=== PATIENT | male | born 1950 | race Caucasian/White ===

== ENCOUNTER 2017-01-23 07:54 | Emergency (ER) | payer OTHER ==
[2017-01-23 08:15] VITALS: BMI 29.7
--- NOTE | 2017-01-23 08:29 | DR.GENAD ---
HPI - PCP Primary Care Physician: SHAYY - Complaint/Symptoms Chief Complaint Doctors Comments: Patient reports that he has had numbness of the upper and lower extremities for several months. Lately the numbness has increased. He has little feelings in the hand at times. He has been going to a chiropractor for alignment and with the assumption that the numbness will improve but this has not been the case. He has drooping to the eye lids that have increased. He denies any articulation problems or memory defect. Chief Complaint:: NUMBNESS - Source History Provided: Patient - Mode of Arrival Mode of Arrival: Wheelchair - Timing Onset of Chief Complaint: 01/20/17 PMH - PMH Past Medical History: Yes Past Medical History: Hypertension Past Medical History Comment: PT STATES HE THINKS HE HAD A TIA WHEN HE WAS 41 Past Surgical History: Yes Past Surgical History Comment: EYE SURGERY - Family History History of Family Medical Conditions: Yes Family Medical History: Diabetes Mellitus, Cancer, Coronary Artery Disease, Hypertension - Social History Does patient currently use any type of tobacco product: No Have you used tobacco products in the last 12 months: No Type of Tobacco Use: None Alcohol Use: None Do you use any recreational Drugs:: No Lives With: Spouse Lives Where: Home - infectious screening In the last 2 months have you had wt loss of >10#?: NO Have you had fever, night sweats or hemotysis?: No Have you traveled outside the country in the last 6 months?: No Isolation: Standard ROS - Review of Systems Eyes: No Symptoms Reported ENTM: No Symptoms Reported Respiratoy: No Symptoms Reported Cardiovascular: No Symptoms Reported Gastrointestinal/Abdominal: No Symptoms Reported Genitourinary: No Symptoms Reported Neurological: See HPI, Weakness, Problems Walking Musculoskeletal: Foot Integumentary: No Symptoms Reported Hematologic/Lymphatic: No Symptoms Reported Endocrine: No Symptoms Reported Psychiatric: No Symptoms Reported All Other Systems: Reviewed and Negative PE - Vital Signs Vitals: Temperature 97.5 F Pulse Rate [Apical] 56 Pulse Rate 61 Respiratory Rate 22 Blood Pressure [Left Arm] 149/86 Blood Pressure 131/86 O2 Sat by Pulse Oximetry 95 - General Limitations: No Limitations General Appearance: Alert - Head Head Exam: Normal Inspection, Atraumatic - Eyes Eye exam: Normal Appearance, PERRL, EOMI - ENT ENT Exam: Normal Exam External Ear Exam: Normal External Inspection TM/Canal Exam: Bilateral Normal Nose Exam: Normal Nose Exam Mouth Exam: Normal Inspection Throat Exam: Normal Inspection - Neck Neck Exam: Normal Inspection, Full ROM - Chest Chest Inspection: Normal Inspection - Respiratory Respiratory Exam: Normal Lung Sounds Bilat Respiratory Exam: Bilateral Clear to Auscultation - Cardiovascular Cardiovascular Exam: Regular Rate, Normal Rhythm - Abdominal Exam Abdominal Exam: Normal Inspection Abdominal Tenderness: negative: RUQ, RLQ, LUQ, LLQ, Epigastrium, Suprapubic, Diffuse, Mild, Moderate, Severe, Other - Extremities Extremities Exam: Normal Inspection - Back Back Exam: Normal Inspection, Full ROM - Neurologic Neurological Exam: Alert, Oriented X3, CN II-XII Intact - Psychiatric Psychiatric Exam: Normal Affect - Skin Skin Exam: Warm, Dry, Intact ROR - Labs Reviewed Result Diagrams: 01/23/17 08:02 01/23/17 08:02 Laboratory: WBC 6.4 X10^3/uL (3.6-10.0) 01/23/17 08:02 RBC 5.03 X10^6/uL (4.7-6.0) 01/23/17 08:02 Hgb 14.7 g/dL (13.5-18.0) 01/23/17 08:02 Hct 42.7 % (42.0-54.0) 01/23/17 08:02 MCV 85.0 fL (80.0-100.0) 01/23/17 08:02 MCH 29.3 pg (27.0-34.0) 01/23/17 08:02 MCHC 34.5 g/dL (33.0-35.0) 01/23/17 08:02 RDW 14.0 % (11.6-16.5) 01/23/17 08:02 Plt Count 226 X10^3/uL (150.0-450.0) 01/23/17 08:02 MPV 9.8 fL (7.4-11.0) 01/23/17 08:02 Neut % 77.6 % (42.0-75.0) H 01/23/17 08:02 Lymph % 12.5 % (21.0-51.0) L 01/23/17 08:02 [place] % 7.7 % (0.0-13.0) 01/23/17 08:02 Eos % 1.2 % (0.9-2.9) 01/23/17 08:02 Baso % 1.0 % (0.2-1.0) 01/23/17 08:02 Neut # 4.9 x10^3/uL (2.2-4.8) H 01/23/17 08:02 Lymph # 0.8 X10^3/uL (1.3-2.9) L 01/23/17 08:02 [place] # 0.5 x10^3/uL (0.3-0.8) 01/23/17 08:02 Eos # 0.1 x10^3/uL (0.0-0.2) 01/23/17 08:02 Baso # 0.1 X10^3/uL (0.0-0.1) 01/23/17 08:02 Absolute Nucleated RBC 0.1 /100WBC 01/23/17 08:02 Sodium 139 mmol/L (136-145) 01/23/17 08:02 Corrected Sodium 140 mmol/L (136-145) 01/23/17 08:02 Potassium 3.6 mmol/L (3.5-5.1) 01/23/17 08:02 Chloride 102 mmol/L (98-107) 01/23/17 08:02 Carbon Dioxide 28.8 mmol/L (21-32) 01/23/17 08:02 BUN 14 mg/dL (7-18) 01/23/17 08:02 Creatinine 1.22 mg/dL (0.70-1.30) 01/23/17 08:02 Est GFR (MDRD) Af Amer > 60 (>60) 01/23/17 08:02 Est GFR (MDRD) Non-Af > 60 (>60) 01/23/17 08:02 Glucose 134 mg/dL (65-99) H 01/23/17 08:02 Calcium 8.8 mg/dL (8.5-10.1) 01/23/17 08:02 Corrected Calcium TNP 01/23/17 08:02 Total Bilirubin 0.50 mg/dL (0.2-1.0) 01/23/17 08:02 AST 19 Units/L (15-37) 01/23/17 08:02 ALT 23 Units/L (12-78) 01/23/17 08:02 Alkaline Phosphatase 85 Units/L (46-116) 01/23/17 08:02 Total Protein 8.1 g/dL (6.4-8.2) 01/23/17 08:02 Albumin 3.6 g/dL (3.4-5.0) 01/23/17 08:02 Globulin 4.5 g/dL (2.5-4.5) 01/23/17 08:02 Albumin/Globulin Ratio 0.8 Ratio (1.1-2.1) L 01/23/17 08:02 TSH 3rd Generation 0.651 uIU/mL (0.358-3.74) 01/23/17 08:02 - XRAY XRAY Interpreted by: Radiologist (CT Brain: o acute intraparenchymal hemorrhage or mass can be identified. No extra-axial fluid collections are seen. No alteration in the attenuation of the brain parenchyma can be identified to suggest acute or subacute ischemic change. The ventricular system is symmetric and nondilated.. The extracranial structures are grossly unremarkable. CT Cervical Spine: Moderate degenerative changes. CT Lumbar Spine: Mild to moderate lumbar spine spondylosis and lower lumbar facet joint DJD with discal height loss at the L5-S1 level where there is also facet joint DJD and a vacuum disc phenomenon. There is also the suggestion of a right lateral disc protrusion at L5-S1 which is partially calcified which creates severe right sided and severe left sided foraminal narrowing/stenosis at L5-S1 with prob able neural impingement of the exiting nerve roots at this level.) - Diagnosis Discharge Problem: Ptosis of eyelid, bilateral, Spondylosis of lumbar spine, L5-S1 nerve root impingement DJD (degenerative joint disease) of cervical spine Qualifiers: Spinal osteoarthritis complication: with radiculopathy Qualified Code(s): M47.22 - Other spondylosis with radiculopathy, cervical region - Discharge Plan Condition: Stable - Follow ups/Referrals Follow ups/Referrals: Lawrence Hudson [Primary Care Provider] - 3 days - Instructions
[2017-01-23 08:50] LABS: BASOPHILS # (AUTO) 0.1 X10^3/uL (0.0-0.1); EOSINOPHILS # (AUTO) 0.1 x10^3/uL (0.0-0.2); EOSINOPHILS % (AUTO) 1.2 % (0.9-2.9); HEMATOCRIT 42.7 % (42.0-54.0); HEMOGLOBIN 14.7 g/dL (13.5-18.0); LYMPHOCYTES # (AUTO) 0.8 X10^3/uL (1.3-2.9); LYMPHOCYTES % (AUTO) 12.5 % (21.0-51.0); MEAN CORPUSCULAR HEMOGLOBIN 29.3 pg (27.0-34.0); MEAN CORPUSCULAR HGB CONC 34.5 g/dL (33.0-35.0); MEAN PLATELET VOLUME 9.8 fL (7.4-11.0); MONOCYTES # (AUTO) 0.5 x10^3/uL (0.3-0.8); MONOCYTES % (AUTO) 7.7 % (0.0-13.0); NEUTROPHILS # (AUTO) 4.9 x10^3/uL (2.2-4.8); NEUTROPHILS % (AUTO) 77.6 % (42.0-75.0); PLATELET COUNT 226 X10^3/uL (150.0-450.0); RED BLOOD COUNT 5.03 X10^6/uL (4.7-6.0); WHITE BLOOD COUNT 6.4 X10^3/uL (3.6-10.0)
[2017-01-23 08:58] VITALS: BP 149/86
[2017-01-23 09:05] LABS: ALANINE AMINOTRANSFERASE 23 Units/L (12-78); ALBUMIN 3.6 g/dL (3.4-5.0); ALKALINE PHOSPHATASE 85 Units/L (46-116); ASPARTATE AMINO TRANSFERASE 19 Units/L (15-37); BLOOD UREA NITROGEN 14 mg/dL (7-18); CALCIUM 8.8 mg/dL (8.5-10.1); CARBON DIOXIDE 28.8 mmol/L (21-32); CHLORIDE 102 mmol/L (98-107); COR NA(FOR HYPERGLY) 140 mmol/L (136-145); CREATININE 1.22 mg/dL (0.70-1.30); SODIUM 139 mmol/L (136-145); TOTAL PROTEIN 8.1 g/dL (6.4-8.2); TSH (3RD GENERATION) 0.651 uIU/mL (0.358-3.74); eGFR BLACK RACES > 60 (>60); eGFR NON BLACK RACES > 60 (>60)
--- NOTE | 2017-01-23 09:46 | CT ---
HISTORY: Hypertension, altered mental status, and possible CVA Study: CT brain without contrast Comparison: None Technique: Multiple axial images of the brain were obtained from the skull base to the vertex without administra tion of IV contrast. Findings: No acute intraparenchymal hemorrhage or mass can be identified. No extra-axial fluid collections are seen. No alteration in the attenuation of the brain parenchyma can be identified to suggest acute o r subacute ischemic change. The ventricular system is symmetric and nondilated. The extracranial str uctures are grossly unremarkable. If the patient's symptoms persist, follow-up brain MRI imaging is s uggested to exclude an acute CVA. IMPRESSION: 1. No acute intracranial process can be identified. Reported By:
--- NOTE | 2017-01-23 09:50 | CT ---
History: Low back pain and degenerative disc disease. Exam: Noncontrast CT examination of the lumbar spine. Technique: Multiple axial CT images of the L-spine were performed with sagittal and coronal reformatt ed CT images of the lumbar spine without the benefit of IV contrast. Comparison: No recent priors. Findings: There is mild to moderate lumbar spine spondylosis and lower lumbar facet joint DJD with discal heigh t loss at the L5-S1 level where there is also facet joint DJD and a vacuum disc phenomenon. There is also the suggestion of a right lateral disc protrusion at L5-S1 which is partially calcified which cr eates severe right sided and severe left-sided foraminal narrowing/stenosis at L5-S1 with probable ne ural impingement of the exiting nerve roots at this level. This abnormality can be followed up with l umbar spine MRI imaging for assurance and to evaluate the degree of neural compression, however. Ther e is no evidence for acute fracture, subluxation, or pars defect. No destructive lytic bony lesion or erosive endplate changes are observed there is mild to moderate bilateral SI joint DJD without joint erosion seen there is scattered aortic atherosclerosis. No retroperitoneal soft tissue masses or james nopathy is seen. No other lumbar spine abnormalities are identified on this lumbar spine CT examinati on. Impression: No acute fracture or compression deformity appreciated. No subluxation seen. Mild to moderate lumbar spine spondylosis and lower lumbar facet joint DJD with discal height loss at the L5-S1 level where there is also facet joint DJD and a vacuum disc phenomenon. There is also the suggestion of a right lateral disc protrusion at L5-S1 which is partially calcified which creates sev ere right sided and severe left-sided foraminal narrowing/stenosis at L5-S1 with probable neural impi ngement of the exiting nerve roots at this level. This abnormality can be followed up with outpatient lumbar spine MRI imaging for assurance and to evaluate the degree of neural compression, however. Reported By:
--- NOTE | 2017-01-23 10:01 | CT ---
HISTORY: Hypertension, possible TIA 20 years ago. Patient has involuntary muscle movement and jerking gradually worsening over 5 days. Study: CT cervical spine without contrast Comparison: No priors Technique: Multiple axial images of the cervical spine were obtained from the skull base to the thora cic inlet without administration of IV contrast. Sagittal and coronal reformats were performed and r eviewed. Dose reduction techniques utilized automatic exposure control. Findings: Alignment of the cervical spine is maintained. No evidence for acute cortical disruption or subluxat ion can be seen. The central canal remains free of compromise from bony fragments or significant sof t tissue encroachment. The posterior elements appear unremarkable. The prevertebral soft tissues ar e normal in their appearance. In addition, the surrounding paraspinous soft tissues are unremarkable .Moderate degenerative changes of the cervical spine are incidentally noted. IMPRESSION: 1. No evidence for traumatic injury of the cervical spine. Reported By:
== END 2017-01-23 10:53 | disposition home or self-care (01) ==
LOC: ER 08:08
DX: H02.409 Unspecified ptosis of unspecified eyelid (principal); M47.9 Spondylosis, unspecified; G55 Nerve root and plexus compressions in diseases classified elsewhere; M47.22 Other spondylosis with radiculopathy, cervical region
CPT/HCPCS: 36415; 70450; 72125; 72131; 80053; 84443; 85025; 93005; 93010; 99283

== ENCOUNTER 2017-01-23 18:49 | Inpatient (IN) | payer OTHER ==
[2017-01-23 20:36] LABS: BASOPHILS # (AUTO) 0.2 X10^3/uL (0.0-0.1); BASOPHILS % (AUTO) 2.2 % (0.2-1.0); EOSINOPHILS # (AUTO) 0.1 x10^3/uL (0.0-0.2); EOSINOPHILS % (AUTO) 1.4 % (0.9-2.9); HEMATOCRIT 41.3 % (42.0-54.0); HEMOGLOBIN 14.2 g/dL (13.5-18.0); LYMPHOCYTES # (AUTO) 1.1 X10^3/uL (1.3-2.9); LYMPHOCYTES % (AUTO) 13.5 % (21.0-51.0); MEAN CORPUSCULAR HEMOGLOBIN 29.2 pg (27.0-34.0); MEAN CORPUSCULAR HGB CONC 34.3 g/dL (33.0-35.0); MEAN PLATELET VOLUME 9.6 fL (7.4-11.0); MONOCYTES # (AUTO) 0.7 x10^3/uL (0.3-0.8); MONOCYTES % (AUTO) 9.2 % (0.0-13.0); NEUTROPHILS # (AUTO) 5.9 x10^3/uL (2.2-4.8); NEUTROPHILS % (AUTO) 73.7 % (42.0-75.0); PLATELET COUNT 236 X10^3/uL (150.0-450.0); RED BLOOD COUNT 4.86 X10^6/uL (4.7-6.0); RED CELL DISTRIBUTION WIDTH 13.8 % (11.6-16.5)
[2017-01-23 20:49] LABS: ALANINE AMINOTRANSFERASE 20 Units/L (12-78); ALBUMIN 3.5 g/dL (3.4-5.0); ALKALINE PHOSPHATASE 83 Units/L (46-116); ASPARTATE AMINO TRANSFERASE 16 Units/L (15-37); BLOOD UREA NITROGEN 16 mg/dL (7-18); CALCIUM 8.9 mg/dL (8.5-10.1); CARBON DIOXIDE 29.4 mmol/L (21-32); CHLORIDE 103 mmol/L (98-107); CREATININE 1.36 mg/dL (0.70-1.30); SODIUM 141 mmol/L (136-145); TOTAL PROTEIN 7.7 g/dL (6.4-8.2); eGFR BLACK RACES > 60 (>60); eGFR NON BLACK RACES 56 (>60)
[2017-01-23] MEDS: NS 1000 ML 1,000 ML IV SCH (20:57)
[2017-01-23] MEDS ORDERED: MAGNESIUM SULFATE 1 GM/100 mL PREMIX 1 GM/100 ML BAG IV PRN (21:28)
[2017-01-23] MEDS ORDERED: K-LYTE EFFERVESCENT PO PRN (21:28)
[2017-01-23] MEDS ORDERED: MAG-OX TAB PO PRN (21:28)
[2017-01-23 21:44] LABS: ERYTHROCYTE SEDIMENTATION RATE 5 MM/HOUR (0-15)
[2017-01-23] MEDS: K-RIDER 10 MEQ/NS 100 ML 10 MEQ/100 ML BAG IV PRN ×2 (22:00→23:07)
[2017-01-23 22:52] VITALS: BMI 30.9
[2017-01-24] MEDS: K-RIDER 10 MEQ/NS 100 ML 10 MEQ/100 ML BAG IV PRN ×3 (00:18→10:43)
[2017-01-24 06:15] LABS: BASOPHILS # (AUTO) 0.1 X10^3/uL (0.0-0.1); BASOPHILS % (AUTO) 0.8 % (0.2-1.0); EOSINOPHILS # (AUTO) 0.1 x10^3/uL (0.0-0.2); EOSINOPHILS % (AUTO) 0.8 % (0.9-2.9); HEMATOCRIT 41.9 % (42.0-54.0); HEMOGLOBIN 14.6 g/dL (13.5-18.0); LYMPHOCYTES # (AUTO) 0.7 X10^3/uL (1.3-2.9); LYMPHOCYTES % (AUTO) 7.1 % (21.0-51.0); MEAN CORPUSCULAR HEMOGLOBIN 29.6 pg (27.0-34.0); MEAN CORPUSCULAR HGB CONC 34.9 g/dL (33.0-35.0); MEAN CORPUSCULAR VOLUME 84.9 fL (80.0-100.0); MEAN PLATELET VOLUME 10.2 fL (7.4-11.0); MONOCYTES # (AUTO) 0.6 x10^3/uL (0.3-0.8); MONOCYTES % (AUTO) 6.4 % (0.0-13.0); NEUTROPHILS # (AUTO) 8.2 x10^3/uL (2.2-4.8); NEUTROPHILS % (AUTO) 84.9 % (42.0-75.0); PLATELET COUNT 219 X10^3/uL (150.0-450.0); RED BLOOD COUNT 4.94 X10^6/uL (4.7-6.0); WHITE BLOOD COUNT 9.7 X10^3/uL (3.6-10.0)
[2017-01-24 06:26] LABS: ALANINE AMINOTRANSFERASE 21 Units/L (12-78); ALBUMIN 3.5 g/dL (3.4-5.0); ALKALINE PHOSPHATASE 84 Units/L (46-116); ASPARTATE AMINO TRANSFERASE 23 Units/L (15-37); BLOOD UREA NITROGEN 12 mg/dL (7-18); CALCIUM 8.7 mg/dL (8.5-10.1); CARBON DIOXIDE 25.6 mmol/L (21-32); CHLORIDE 104 mmol/L (98-107); CREATININE 1.04 mg/dL (0.70-1.30); SODIUM 139 mmol/L (136-145); TOTAL PROTEIN 7.9 g/dL (6.4-8.2); eGFR BLACK RACES > 60 (>60); eGFR NON BLACK RACES > 60 (>60)
[2017-01-24 07:09] LABS: ERYTHROCYTE SEDIMENTATION RATE 5 MM/HOUR (0-15)
[2017-01-24] MEDS: NS 1000 ML 1,000 ML IV SCH ×2 (08:30→20:59)
[2017-01-24 10:00] LABS: FREE T4 (FREE THYROXINE) 1.22 ng/dL (0.76-1.46); TSH (3RD GENERATION) 0.643 uIU/mL (0.358-3.74)
[2017-01-24] MEDS ORDERED: PHARMACY CONSULT - DOSE _____ XX SCH (10:00)
[2017-01-24] MEDS: SOLU-Medrol 125 MG VIAL IVP SCH ×3 (10:06→20:59)
[2017-01-24] MEDS ORDERED: PATIENT'S HOME MEDICATION (Losartan/Hydrochlorothiazide [Losartan-Hctz 100-25 Mg Tab] 1 TA PO SCH (10:15)
[2017-01-24] MEDS: MESTINON 60MG TAB PO SCH ×3 (10:40→20:59)
[2017-01-24] MEDS: NORVASC TAB 10 MG PO SCH (10:40)
[2017-01-24] MEDS: TYLENOL 325 MG TAB PO PRN (10:40)
[2017-01-24] MEDS: HYZAAR 50/12.5 MG PO SCH (10:40)
--- NOTE | 2017-01-24 11:56 | MRI ---
STUDY: MRI OF THE BRAIN WITHOUT AND WITH GADOLINIUM HISTORY: Acute diplopia. Uncontrollable involuntary severe jerking of limbs with numbness and tingli ng throughout the entire body. Technique: Multiplanar multi-sequence MRI of the brain was obtained utilizing standard departmental p rotocol. Sagittal and axial T1, axial T2, FLAIR, diffusion (DWI/ADC) images through the brain were pe rformed. 20 cc of Omniscan was administered intravenously without reported complication following acquisition of informed written consent. Post gadolinium axial and coronal T1 weighted images were also performed and reviewed. Comparison: Head CT from January 23, 2017. Findings: Pre gadolinium brain: The sulci, cisterns and ventricles are prominent consistent with mild diffuse v olume loss. There are confluent and scattered foci of T2 prolongation in the periventricular and subc ortical white matter of both hemispheres. This is a nonspecific finding which likely represents micro angiopathic change in a patient of this age. There is a punctate focus of decreased diffusion versus T2 shine through in the right post central gy heaven near the vertex. There is no evidence of acute hemorrhage, mass, mass effect, or midline shift. T here are no abnormal intra-axial or extra-axial fluid collections. The major intracranial vascular flow voids appear intact. The vertebral arteries are codominant. Post gadolinium brain: Following the uneventful administration of intravenous gadolinium, there is no evidence of abnormal parenchymal or leptomeningeal enhancement. IMPRESSION: 1. Punctate focus of decreased diffusion versus T2 shine through in the superior medial aspect of th e post central gyrus on the right. This may represent an evolving acute to subacute infarct. Clinical correlation for infarct timing is recommended. 2. Nonspecific white matter change and volume loss. Reported By:
[2017-01-24] MEDS: ZyrTEC TAB 10 MG PO SCH (20:59)
[2017-01-25] MEDS: SOLU-Medrol 125 MG VIAL IVP SCH ×4 (05:23→23:29)
[2017-01-25] MEDS: MESTINON 60MG TAB PO SCH ×5 (05:23→23:29)
[2017-01-25 06:19] LABS: ALANINE AMINOTRANSFERASE 26 Units/L (12-78); ALBUMIN 3.4 g/dL (3.4-5.0); ALKALINE PHOSPHATASE 79 Units/L (46-116); ASPARTATE AMINO TRANSFERASE 54 Units/L (15-37); BLOOD UREA NITROGEN 18 mg/dL (7-18); CALCIUM 9.3 mg/dL (8.5-10.1); CARBON DIOXIDE 22.1 mmol/L (21-32); CHLORIDE 105 mmol/L (98-107); COR NA(FOR HYPERGLY) 142 mmol/L (136-145); SODIUM 140 mmol/L (136-145); TOTAL PROTEIN 7.9 g/dL (6.4-8.2); eGFR BLACK RACES > 60 (>60); eGFR NON BLACK RACES > 60 (>60)
[2017-01-25 07:44] LABS: BASOPHILS # (AUTO) 0.1 X10^3/uL (0.0-0.1); BASOPHILS % (AUTO) 0.7 % (0.2-1.0); HEMATOCRIT 42.7 % (42.0-54.0); HEMOGLOBIN 14.6 g/dL (13.5-18.0); LYMPHOCYTES # (AUTO) 0.4 X10^3/uL (1.3-2.9); LYMPHOCYTES % (AUTO) 2.3 % (21.0-51.0); MEAN CORPUSCULAR HGB CONC 34.1 g/dL (33.0-35.0); MEAN PLATELET VOLUME 10.1 fL (7.4-11.0); MONOCYTES # (AUTO) 0.4 x10^3/uL (0.3-0.8); MONOCYTES % (AUTO) 2.3 % (0.0-13.0); NEUTROPHILS # (AUTO) 16.5 x10^3/uL (2.2-4.8); NEUTROPHILS % (AUTO) 94.7 % (42.0-75.0); PLATELET COUNT 242 X10^3/uL (150.0-450.0); RED BLOOD COUNT 5.02 X10^6/uL (4.7-6.0); RED CELL DISTRIBUTION WIDTH 14.1 % (11.6-16.5); WHITE BLOOD COUNT 17.4 X10^3/uL (3.6-10.0)
[2017-01-25 07:45] LABS: BAND NEUTROPHILS % 2 % (0-10); PLATELET MORPHOLOGY COMMENT NORMAL (NORMAL)
[2017-01-25] MEDS: HYZAAR 50/12.5 MG PO SCH (09:31)
[2017-01-25] MEDS: NORVASC TAB 10 MG PO SCH (09:32)
--- NOTE | 2017-01-25 12:12 | DR.H&P ---
H&P - History & Physical for Day of: H&P Date: 01/23/17 - Chief Complaint Chief Complaint: acute diplopia, weakness - Allergies Allergies/Adverse Reactions: Allergies Allergy/AdvReac Type Severity Reaction Status Date / Time No Known Drug Allergies Allergy Verified 01/23/17 08:33 - History of Present Illness History of Present Illness: is a 66 year old patient of ours who is a direct admission from our office. He presented with complaints of double vision , unsteady balance, drooping of the eyelids and inability to keep them open, tingling of the upper and lower extremities with associated weakness, inability to hold head erect, and shortness of breath. On examination, bilateral lungs are noted with course rhonchi. Subcostal retractions noted. Abdomen is round, soft, and non-tender with normal bowel sounds in all quadrants. Patient is noted with moderate weakness to bilateral upper and lower extremities. Patient was noted with 2/5 power when head/neck flexion and extension was examined. Patient reports diplopia at rest. Ptosis is noted at rest and continues after sustained upgaze and repeated blinking. Patient reports being seen in the ER earlier this morning. A brain CT was obtained in the ER and reported no acute intracranial process. A CT of the cervical spine reported no evidence for traumatic injury of the cervical spine. A Lumbar spine CT revealed mild to moderate lumbar spine spnodylosis and lower lumbar facet joint DJD with discal height loss at the L5-S1 level where there is also facet joint DJD and vacuum disc phenomenon. There is also the suggestion of a right lateral disc protrusion at L5-S1 which is partially calcified which creates severe right sided and left sided foraminal narrowing/stenosis at L5-S1 with probable neural impingement of the exiting nerve roots at this level. We admitted patient to the hospital for acute diplopia. We will obtain a CBC, CMP, ESR, AND CRP on admission and repeat in the morning. We plan to obtain a brain MRI with contrast in the morning. - Past Medical History Past Medical History: Hypertension - Past Surgical History Surgical History: No History - Family History Family Medical History: Diabetes Mellitus, Cancer, Coronary Artery Disease, Hypertension - Social History Does patient currently use any type of tobacco product: No Have you used tobacco products in the last 12 months: No Type of Tobacco Use: None Alcohol Use: None Drug Use: None - Review of Systems Constitutional: No Symptoms Reported, Weakness. denies: Fever, Chills, Sweats, Malaise, Other Eyes: See HPI, Vision Change, Other (ptosis bilateral eyelids ) ENT: Nose Discharge, Nose Congestion. denies: Ear Pain, Ear Discharge, Nose Pain, Mouth Pain, Mouth Swelling, Throat Pain, Throat Swelling Respiratory: See HPI, Shortness of Breath, SOB with Excertion. denies: Hemoptysis, Sputum, Wheezing Cardiovascular: No Symptoms Reported. denies: Chest Pain, Palpitations, Orthopnea, Paroxysmal Noc. Dyspnea, Edema, Light Headedness, Other Gastrointestinal: No Symptoms Reported. denies: Nausea, Vomiting, Abdominal Pain, Diarrhea, Constipation, Melena, Hematochezia, Other Genitourinary: No Symptoms Reported. denies: Dysuria, Frequency, Incontinence, Hematuria, Retention, Other Musculoskeletal: Other (bilateral upper and lower extremity weakness, unstable gait ) Skin: No Symptoms Reported. denies: Rash, Lesions, Jaundice, Bruising, Wound, Ecchymosis, Other Neurological: See HPI, Weakness, Numbness, Incoordination - Physical Exam Vital Signs: Temperature 98.4 F Pulse Rate [Left Brachial] 79 Pulse Rate 63 Respiratory Rate 28 Blood Pressure [Left Arm] 149/78 Blood Pressure 149/86 O2 Sat by Pulse Oximetry 96 Oriented: Normal Eyes: Blurred Vision, Diplopia, Other (ptosis ) Ear: Normal. negative: Right, Left, Swelling, Ecchymosis, Hemotypanum, Abrasion , Laceration Nose: Discharge. negative: Normal, Injected, Blood, Other Throat: Normal Respiratory: Rhonchi Throughout Cardiovascular: Normal. negative: Tachycardia, Bradycardia, Irregular, S3, S4, Murmur, Edema, Other : Normal. negative: Dysuria, Hematuria, Frequency, Discharge, Testicular Pain , Bleeding, , Other Auscultation: Bowel Sounds: Normal Palpation: Normal Tenderness: Normal. negative: Rebound, Guarding, Rigidity Skin: Normal Musculoskeletal: Right, Left, Arm, Leg, Back:Lumbar, Tender, Instability Psychiatric: Normal Mood Description: Calm Affect: Normal Speech Pattern: Clear - Assessment/Plan (1) Diplopia Status: Acute Plan: BRAIN MRI WITH CONTRAST, CONTINUE TO MONITOR (2) Ptosis of eyelid, bilateral Status: Acute Plan: BRAIN MRI WITH CONTRAST, CONTINUE TO MONITOR (3) Weakness generalized Status: Acute Plan: BRAIN MRI WITH CONTRAST, CONTINUE TO MONITOR
[2017-01-25] MEDS: TYLENOL 325 MG TAB PO PRN (12:40)
[2017-01-25] MEDS: NS 1000 ML 1,000 ML IV SCH ×2 (15:31→23:34)
[2017-01-25] MEDS: ZyrTEC TAB 10 MG PO SCH (20:14)
[2017-01-26] MEDS: MESTINON 60MG TAB PO SCH ×6 (03:14→20:45)
[2017-01-26 05:41] LABS: BASOPHILS % (AUTO) 0.1 % (0.2-1.0); HEMATOCRIT 42.4 % (42.0-54.0); HEMOGLOBIN 14.2 g/dL (13.5-18.0); LYMPHOCYTES # (AUTO) 0.3 X10^3/uL (1.3-2.9); LYMPHOCYTES % (AUTO) 1.8 % (21.0-51.0); MEAN CORPUSCULAR HEMOGLOBIN 28.9 pg (27.0-34.0); MEAN CORPUSCULAR HGB CONC 33.6 g/dL (33.0-35.0); MEAN PLATELET VOLUME 10.4 fL (7.4-11.0); MONOCYTES # (AUTO) 0.6 x10^3/uL (0.3-0.8); MONOCYTES % (AUTO) 3.1 % (0.0-13.0); NEUTROPHILS # (AUTO) 17.5 x10^3/uL (2.2-4.8); PLATELET COUNT 229 X10^3/uL (150.0-450.0); RED BLOOD COUNT 4.93 X10^6/uL (4.7-6.0); RED CELL DISTRIBUTION WIDTH 14.2 % (11.6-16.5); WHITE BLOOD COUNT 18.4 X10^3/uL (3.6-10.0)
[2017-01-26 05:49] LABS: ALANINE AMINOTRANSFERASE 56 Units/L (12-78); ALBUMIN 3.3 g/dL (3.4-5.0); ALKALINE PHOSPHATASE 74 Units/L (46-116); ASPARTATE AMINO TRANSFERASE 106 Units/L (15-37); BLOOD UREA NITROGEN 25 mg/dL (7-18); CALCIUM 9.1 mg/dL (8.5-10.1); CHLORIDE 107 mmol/L (98-107); COR CA(FOR HYPOALB) 9.7 mg/dL (8.5-10.1); COR NA(FOR HYPERGLY) 145 mmol/L (136-145); CREATININE 1.21 mg/dL (0.70-1.30); SODIUM 144 mmol/L (136-145); TOTAL PROTEIN 7.6 g/dL (6.4-8.2); eGFR BLACK RACES > 60 (>60); eGFR NON BLACK RACES > 60 (>60)
[2017-01-26] MEDS: SOLU-Medrol 125 MG VIAL IVP SCH ×3 (06:12→20:43)
[2017-01-26 06:32] LABS: BAND NEUTROPHILS % 2 % (0-10); PLATELET MORPHOLOGY COMMENT NORMAL (NORMAL)
[2017-01-26] MEDS: HYZAAR 50/12.5 MG PO SCH (09:43)
[2017-01-26] MEDS: NORVASC TAB 10 MG PO SCH (09:43)
[2017-01-26] MEDS ORDERED: PHARMACY CONSULT - DOSE _____ XX SCH (10:00)
--- NOTE | 2017-01-26 10:45 | PCM.PROG ---
Progress Note - Progress Note for Day of Date: 01/24/17 - Subjective Subjective: WAS ADMITTED WITH ACUTE DIPLOPIA, UNSTEADY BALANCE, WEAKNESS, AND PTOSIS. TODAY, HE IS ALERT AND ORIENTED, LYING IN BED ON MORNING ROUNDS. PATIENT'S FAMILY IS AT BEDSIDE. PATIENT CONTINUES WITH MODERATED WEAKNESS TO UPPER AND LOWER EXTREMITIES. HE CONTINUES TO BE UNABLE TO HOLD HEAD ERECT. HE CONTINUES WITH INABILITY TO HOLD EYELIDS OPEN UNLESS HELD UP BY TAPE. PATIENT REPORTS DOUBLE VISION. LUNGS CONTINUE WITH COURSE RHONCHI. HE CONTINUES TO COMPLAIN OF SHORTNESS OF BREATH. HIS VITAL SIGNS THIS MORNING ARE 98.4-62-16- 99%-154/82. ABNORMAL LAB VALUES THIS MORNING INCLUDE THE FOLLOWING: HCT 41.9, POTASSIUM 3.4, GLUCOSE 103, CRP 5.60, A/G RATIO 0.8, VITAMIN B12 1714. WE OBTAINED A BRAIN MRI WITH CONTRAST TODAY. IT REPORTED PUNCTATE FOCUS OF DECREASED DIFFUSION VERSUS T2 SHINE THROUGH IN THE SUPERIOR MEDIAL ASPECT OF THE POST CENTRAL GYRUS ON THE RIGHT. THIS MAY REPRESENT AN EVOLVING ACUTE TO SUBACUTE INFARCT. CLINICAL CORRELATION FOR INFARCT TIMING IS RECOMMENDED. NONSPECIFIC WHITE MATTER CHANGE AND VOLUME LOSS. WE BELIEVE THAT PATIENT IS EXHIBITING SIGNS AND SYMPTOMS OF MYASTHENIA GRAVIS. TODAY, WE PLAN TO START SOLUMEDROL 125MG IV Q8H AND MESTINON 60MG TID. WE WILL CHECK A MYASTHENIA GRAVIS PANEL AND AN EMILY TITER. OTHERWISE, WE WILL CONTINUE TO MONITOR PATIENT AND FOLLOW UP WITH AM LABS. - Past Medical Family Social History Past Med/Fam/Surg Hx: No changes since H&P Allergies: Allergies No Known Drug Allergies Allergy (Verified 01/23/17 08:33) - Review of Systems ROS: No change since H&P - Vital Signs and I&O's Vital Signs: Temperature 98.2 F Pulse Rate [Left Brachial] 68 Pulse Rate 63 Respiratory Rate 22 Blood Pressure [Left Arm] 150/60 Blood Pressure 149/86 O2 Sat by Pulse Oximetry 96 Intake and Output: Intake & Output 01/23/17 01/24/17 01/25/17 01/26/17 11:59 11:59 11:59 11:59 Intake Total 1624 3812 1795 Output Total 950 120 Balance 674 3692 1795 - Physical Exam Oriented: Normal Eyes: Blurred Vision, Diplopia, Other (ptosis ) Ear: Normal. negative: Right, Left, Swelling, Ecchymosis, Hemotypanum, Abrasion , Laceration Nose: Discharge. negative: Normal, Injected, Blood, Other Throat: Normal Respiratory: Right, Left, Generalized, Rhonchi Cardiovascular: Normal. negative: Tachycardia, Bradycardia, Irregular, S3, S4, Murmur, Edema, Other : Normal. negative: Dysuria, Hematuria, Frequency, Discharge, Testicular Pain , Bleeding, , Other Auscultation: Bowel Sounds: Normal Palpation: Normal Tenderness: Normal. negative: Rebound, Guarding, Rigidity Skin: Normal Musculoskeletal: Right, Left, Arm, Leg, Back:Lumbar, Tender, Instability Psychiatric: Normal Mood Description: Calm Affect: Normal Speech Pattern: Clear, Appropriate - Laboratory and Diagnostics Result Diagrams: 01/28/17 04:00 01/28/17 04:00 Labs: Laboratory WBC 18.4 X10^3/uL (3.6-10.0) H 01/26/17 04:45 RBC 4.93 X10^6/uL (4.7-6.0) 01/26/17 04:45 Hgb 14.2 g/dL (13.5-18.0) 01/26/17 04:45 Hct 42.4 % (42.0-54.0) 01/26/17 04:45 MCV 86.0 fL (80.0-100.0) 01/26/17 04:45 MCH 28.9 pg (27.0-34.0) 01/26/17 04:45 MCHC 33.6 g/dL (33.0-35.0) 01/26/17 04:45 RDW 14.2 % (11.6-16.5) 01/26/17 04:45 Plt Count 229 X10^3/uL (150.0-450.0) 01/26/17 04:45 Plt Count Comment Adequate (ADEQUATE) 01/26/17 04:45 MPV 10.4 fL (7.4-11.0) 01/26/17 04:45 Neut % 95.0 % (42.0-75.0) H 01/26/17 04:45 Lymph % 1.8 % (21.0-51.0) L 01/26/17 04:45 [place] % 3.1 % (0.0-13.0) 01/26/17 04:45 Eos % 0.0 % (0.9-2.9) L 01/26/17 04:45 Baso % 0.1 % (0.2-1.0) L 01/26/17 04:45 Neut # 17.5 x10^3/uL (2.2-4.8) H 01/26/17 04:45 Lymph # 0.3 X10^3/uL (1.3-2.9) L 01/26/17 04:45 [place] # 0.6 x10^3/uL (0.3-0.8) 01/26/17 04:45 Eos # 0.0 x10^3/uL (0.0-0.2) 01/26/17 04:45 Baso # 0.0 X10^3/uL (0.0-0.1) 01/26/17 04:45 Absolute Nucleated RBC 0.0 /100WBC 01/26/17 04:45 Total Counted 100 01/26/17 04:45 Neutrophils % (Manual) 93 % (39-76) H 01/26/17 04:45 Band Neutrophils % 2 % (0-10) 01/26/17 04:45 Lymphocytes % (Manual) 5 % (13-43) L 01/26/17 04:45 Plt Morphology Comment Normal (NORMAL) 01/26/17 04:45 RBC Morphology Normal (NORMAL) 01/26/17 04:45 ESR 5 MM/HOUR (0-15) 01/24/17 05:23 Sodium 144 mmol/L (136-145) 01/26/17 04:45 Corrected Sodium 145 mmol/L (136-145) 01/26/17 04:45 Potassium 3.4 mmol/L (3.5-5.1) L 01/26/17 04:45 Chloride 107 mmol/L (98-107) 01/26/17 04:45 Carbon Dioxide 28.0 mmol/L (21-32) 01/26/17 04:45 BUN 25 mg/dL (7-18) H 01/26/17 04:45 Creatinine 1.21 mg/dL (0.70-1.30) 01/26/17 04:45 Est GFR (MDRD) Af Amer > 60 (>60) 01/26/17 04:45 Est GFR (MDRD) Non-Af > 60 (>60) 01/26/17 04:45 Glucose 146 mg/dL (65-99) H 01/26/17 04:45 Calcium 9.1 mg/dL (8.5-10.1) 01/26/17 04:45 Corrected Calcium 9.7 mg/dL (8.5-10.1) 01/26/17 04:45 Magnesium 1.8 mg/dL (1.7-2.9) 01/23/17 20:28 Total Bilirubin 0.30 mg/dL (0.2-1.0) 01/26/17 04:45 AST 106 Units/L (15-37) H 01/26/17 04:45 ALT 56 Units/L (12-78) 01/26/17 04:45 Alkaline Phosphatase 74 Units/L (46-116) 01/26/17 04:45 C-Reactive Protein 5.60 mg/L (0-3.0) H 01/24/17 05:23 Total Protein 7.6 g/dL (6.4-8.2) 01/26/17 04:45 Albumin 3.3 g/dL (3.4-5.0) L 01/26/17 04:45 Globulin 4.3 g/dL (2.5-4.5) 01/26/17 04:45 Albumin/Globulin Ratio 0.8 Ratio (1.1-2.1) L 01/26/17 04:45 Vitamin B12 1714 pg/mL (193-986) H 01/24/17 05:23 Free T4 1.22 ng/dL (0.76-1.46) 01/24/17 05:23 TSH 3rd Generation 0.643 uIU/mL (0.358-3.74) 01/24/17 05:23 Acetylcholine Recept Ab Cancelled 01/23/17 20:14 - Plan (1) Myasthenia gravis with (acute) exacerbation Status: Suspected Plan: SOLU-MEDROL 125MG IV Q8H, MESTINON 60MG PO TID, CONTINUE TO MONITOR (2) Diplopia Status: Acute Plan: CONTINUE TO MONITOR (3) Ptosis of eyelid, bilateral Status: Acute Plan: CONTINUE TO MONITOR (4) Weakness generalized Status: Acute Plan: PHYSICAL THERAPY, CONTINUE TO MONITOR
[2017-01-26] MEDS: NS 1000 ML 1,000 ML IV SCH ×2 (13:38→20:46)
[2017-01-26] MEDS: ZyrTEC TAB 10 MG PO SCH (20:44)
[2017-01-27] MEDS: SOLU-Medrol 125 MG VIAL IVP SCH ×4 (00:30→18:08)
[2017-01-27] MEDS: NS 1000 ML 1,000 ML IV SCH ×3 (05:36→16:18)
[2017-01-27 05:52] LABS: BASOPHILS % (AUTO) 0.1 % (0.2-1.0); HEMATOCRIT 40.9 % (42.0-54.0); LYMPHOCYTES # (AUTO) 0.3 X10^3/uL (1.3-2.9); MEAN CORPUSCULAR HEMOGLOBIN 29.1 pg (27.0-34.0); MEAN CORPUSCULAR HGB CONC 34.4 g/dL (33.0-35.0); MEAN CORPUSCULAR VOLUME 84.7 fL (80.0-100.0); MEAN PLATELET VOLUME 10.4 fL (7.4-11.0); MONOCYTES # (AUTO) 0.5 x10^3/uL (0.3-0.8); MONOCYTES % (AUTO) 3.4 % (0.0-13.0); NEUTROPHILS # (AUTO) 14.9 x10^3/uL (2.2-4.8); NEUTROPHILS % (AUTO) 94.5 % (42.0-75.0); PLATELET COUNT 253 X10^3/uL (150.0-450.0); RED BLOOD COUNT 4.82 X10^6/uL (4.7-6.0); RED CELL DISTRIBUTION WIDTH 14.2 % (11.6-16.5); WHITE BLOOD COUNT 15.7 X10^3/uL (3.6-10.0)
[2017-01-27 06:25] LABS: PLATELET MORPHOLOGY COMMENT NORMAL (NORMAL)
[2017-01-27 06:26] LABS: BAND NEUTROPHILS % 2 % (0-10)
[2017-01-27 06:34] LABS: ALANINE AMINOTRANSFERASE 76 Units/L (12-78); ALBUMIN 3.2 g/dL (3.4-5.0); ALKALINE PHOSPHATASE 72 Units/L (46-116); ASPARTATE AMINO TRANSFERASE 91 Units/L (15-37); BLOOD UREA NITROGEN 27 mg/dL (7-18); CALCIUM 8.7 mg/dL (8.5-10.1); CHLORIDE 104 mmol/L (98-107); COR CA(FOR HYPOALB) 9.3 mg/dL (8.5-10.1); COR NA(FOR HYPERGLY) 143 mmol/L (136-145); CREATININE 1.12 mg/dL (0.70-1.30); MAGNESIUM 2.3 mg/dL (1.7-2.9); SODIUM 142 mmol/L (136-145); TOTAL PROTEIN 7.1 g/dL (6.4-8.2); eGFR BLACK RACES > 60 (>60); eGFR NON BLACK RACES > 60 (>60)
[2017-01-27] MEDS: MESTINON 60MG TAB PO SCH ×4 (09:10→20:33)
[2017-01-27] MEDS: NORVASC TAB 10 MG PO SCH (09:11)
[2017-01-27] MEDS: HYZAAR 50/12.5 MG PO SCH (09:11)
[2017-01-27] MEDS: K-RIDER 10 MEQ/NS 100 ML 10 MEQ/100 ML BAG IV PRN ×6 (09:15→23:34)
[2017-01-27 11:04] LABS: ANTI-NUCLEAR ANTIBODY TEST None Detected (None Detected)
[2017-01-27] MEDS: ZyrTEC TAB 10 MG PO SCH (20:33)
[2017-01-27] MEDS ORDERED: RESTORIL CAP 15 MG PO PRN (22:08)
[2017-01-27] MEDS ORDERED: ZOFRAN INJ 4 MG VIAL IVP PRN (22:08)
[2017-01-27] MEDS: TYLENOL 325 MG TAB PO PRN (22:39)
[2017-01-28] MEDS: SOLU-Medrol 125 MG VIAL IVP SCH ×2 (00:15→06:03)
[2017-01-28] MEDS: K-RIDER 10 MEQ/NS 100 ML 10 MEQ/100 ML BAG IV PRN ×2 (00:58→06:20)
[2017-01-28 01:14] LABS: BILIRUBIN,URINE NEGATIVE (NEGATIVE); BLOOD/HEMOGLOBIN,URINE 2+ (NEGATIVE); GLUCOSE, URINE NEGATIVE (NEGATIVE); KETONES,URINE NEGATIVE (NEGATIVE); LEUKOCYTE ESTERASE ,URINE NEGATIVE (NEGATIVE); NITRITES,URINE NEGATIVE (NEGATIVE); PROTEIN,URINE NEGATIVE (NEGATIVE); UROBILINOGEN,URINE NORMAL (NORMAL)
[2017-01-28 01:20] LABS: APPEARANCE,URINE CLEAR (CLEAR); BACTERIA,URINE NEGATIVE /HPF (NEGATIVE); COLOR,URINE PALE YELLOW (YELLOW); RBC,URINE RARE /HPF (NEGATIVE); SQUAMOUS EPITHELIAL CELL,UR NEGATIVE /HPF (NEGATIVE)
[2017-01-28] MEDS: NORCO 5/325 MG TAB PO PRN ×2 (03:05→10:28)
[2017-01-28] MEDS: NS 1000 ML 1,000 ML IV SCH (03:05)
[2017-01-28 05:15] LABS: BASOPHILS % (AUTO) 0.1 % (0.2-1.0); HEMATOCRIT 39.9 % (42.0-54.0); HEMOGLOBIN 13.7 g/dL (13.5-18.0); LYMPHOCYTES # (AUTO) 0.2 X10^3/uL (1.3-2.9); LYMPHOCYTES % (AUTO) 1.7 % (21.0-51.0); MEAN CORPUSCULAR HEMOGLOBIN 29.1 pg (27.0-34.0); MEAN CORPUSCULAR HGB CONC 34.2 g/dL (33.0-35.0); MEAN CORPUSCULAR VOLUME 85.1 fL (80.0-100.0); MEAN PLATELET VOLUME 10.6 fL (7.4-11.0); MONOCYTES # (AUTO) 0.5 x10^3/uL (0.3-0.8); MONOCYTES % (AUTO) 4.5 % (0.0-13.0); NEUTROPHILS # (AUTO) 9.9 x10^3/uL (2.2-4.8); NEUTROPHILS % (AUTO) 93.7 % (42.0-75.0); PLATELET COUNT 238 X10^3/uL (150.0-450.0); RED BLOOD COUNT 4.69 X10^6/uL (4.7-6.0); RED CELL DISTRIBUTION WIDTH 14.1 % (11.6-16.5); WHITE BLOOD COUNT 10.6 X10^3/uL (3.6-10.0)
[2017-01-28 05:21] LABS: ALANINE AMINOTRANSFERASE 102 Units/L (12-78); ALBUMIN 2.9 g/dL (3.4-5.0); ALKALINE PHOSPHATASE 60 Units/L (46-116); ASPARTATE AMINO TRANSFERASE 86 Units/L (15-37); BLOOD UREA NITROGEN 23 mg/dL (7-18); CALCIUM 8.3 mg/dL (8.5-10.1); CHLORIDE 106 mmol/L (98-107); COR CA(FOR HYPOALB) 9.2 mg/dL (8.5-10.1); COR NA(FOR HYPERGLY) 144 mmol/L (136-145); CREATININE 0.92 mg/dL (0.70-1.30); SODIUM 143 mmol/L (136-145); TOTAL PROTEIN 6.5 g/dL (6.4-8.2); eGFR BLACK RACES > 60 (>60); eGFR NON BLACK RACES > 60 (>60)
[2017-01-28 05:55] LABS: PLATELET MORPHOLOGY COMMENT NORMAL (NORMAL)
--- NOTE | 2017-01-28 06:19 | RAD ---
Examination: Portable KUB History: Abdominal distention Findings: There is moderately severe gaseous distention of the colon. Gas is present in the rectosigm oid. The underlying visceral structures are largely obscured. There is no obvious mass or pathologic calcification or ascites. Impression: Significant colon distention which may represent primary colon ileus. A distal obstructio n is a possibility and should be clinically considered. Follow-up suggested. Reported By:
--- NOTE | 2017-01-28 06:20 | RAD ---
Indication: Cough Exam: Portable AP chest. Findings: The heart is normal. The pulmonary vessels are normal. The lungs are hypoinflated there is overlying EKG leads and tubing artifact. No consolidation or effusion is seen. Impression: Hypoinflation and overlying artifact limiting the exam with no acute abnormality seen. Reported By:
[2017-01-28] MEDS: HYZAAR 50/12.5 MG PO SCH (08:14)
[2017-01-28] MEDS: MESTINON 60MG TAB PO SCH (08:15)
[2017-01-28] MEDS: TYLENOL 325 MG TAB PO PRN (08:15)
[2017-01-28] MEDS: NORVASC TAB 10 MG PO SCH (08:15)
[2017-01-28] MEDS ORDERED: K-DUR TAB 20 MEQ PO SCH (09:00)
[2017-01-28] MEDS ORDERED: VITAMIN B-12 INJ IM ONE (09:56)
[2017-01-28 11:01] LABS: STRIATIONAL ANTIBODY <1:40
[2017-01-28 11:02] LABS: ACHR BINDING ANTIBODY 0.2
[2017-01-28 12:33] VITALS: BP 154/71
--- NOTE | 2017-01-28 22:08 | PCM.PROG ---
Progress Note - Progress Note for Day of Date: 01/25/17 - Subjective Subjective: WAS ADMITTED WITH ACUTE DIPLOPIA, UNSTEADY BALANCE, WEAKNESS, AND PTOSIS. TODAY, HE IS ALERT AND ORIENTED, LYING IN BED ON MORNING ROUNDS. PATIENT'S FAMILY IS AT BEDSIDE. PATIENT CONTINUES WITH WEAKNESS TO UPPER AND LOWER EXTREMITIES, HOWEVER, SIGNIFICANT IMPROVEMENT IS NOTED SINCE YESTERDAY. PATIENT IS ABLE TO HOLD HEAD ERECT AND HAS GOOD USE AND CONTROL OF NECK WHEREAS HE DIDNT YESTERDAY. HE CONTINUES WITH PTOSIS, BUT REPORTS THAT DOUBLE VISION HAS RESOLVED. LUNGS CONTINUE WITH COURSE RHONCHI BILATERALLY TO AUSCULTATION. HE CONTINUES WITH SHORTNESS OF BREATH. HIS VITAL SIGNS THIS MORNING ARE 98.4-83-44-94%-160/69. ABNORMAL LAB VALUES THIS MORNING INCLUDE THE FOLLOWING: WBC 17.4, GLUCOSE 179, AST 54, A/G RATIO 0.8. EMILY PANEL AND MYASTHENIA GRAVIS PANEL ARE PENDING. WE CONTINUE TO BELIEVE THAT PATIENT IS EXHIBITING SIGNS AND SYMPTOMS OF ACUTE MYASTHENIA GRAVIS, HOWEVER, WE ARE WAITING ON MYASTHENIA GRAVIS PANEL TO CONFIRM. TODAY, WE PLAN TO INCREASE SOLUMEDROL 125MG IV Q6H AND INCREASE MESTINON 60MG TO Q4H. OTHERWISE, WE WILL CONTINUE TO MONITOR PATIENT AND FOLLOW UP WITH AM LABS. - Past Medical Family Social History Past Med/Fam/Surg Hx: No changes since H&P Allergies: Allergies No Known Drug Allergies Allergy (Verified 01/23/17 08:33) - Review of Systems ROS: No change since H&P - Vital Signs and I&O's Vital Signs: Temperature 98.7 F Pulse Rate [Left Brachial] 67 Pulse Rate 80 Respiratory Rate 32 Blood Pressure [Left Arm] 154/71 Blood Pressure 149/86 O2 Sat by Pulse Oximetry 98 Intake and Output: Intake & Output 01/26/17 01/27/17 01/28/17 01/29/17 11:59 11:59 11:59 11:59 Intake Total 1795 4094 3540 Output Total 225 3730 Balance 1795 3869 -190 - Physical Exam Oriented: Normal Eyes: Blurred Vision, Diplopia, Other (ptosis ) Ear: Normal. negative: Right, Left, Swelling, Ecchymosis, Hemotypanum, Abrasion , Laceration Nose: Discharge. negative: Normal, Injected, Blood, Other Throat: Normal Respiratory: Right, Left, Generalized, Rhonchi Cardiovascular: Normal. negative: Tachycardia, Bradycardia, Irregular, S3, S4, Murmur, Edema, Other : Normal. negative: Dysuria, Hematuria, Frequency, Discharge, Testicular Pain , Bleeding, , Other Auscultation: Bowel Sounds: Normal Palpation: Normal Tenderness: Normal. negative: Rebound, Guarding, Rigidity Skin: Normal Musculoskeletal: Right, Left, Arm, Leg, Back:Lumbar, Tender, Instability Psychiatric: Normal Mood Description: Calm Affect: Normal Speech Pattern: Clear, Appropriate - Laboratory and Diagnostics Result Diagrams: 01/28/17 04:00 01/28/17 04:00 Labs: 01/27/17 20:39 Sputum - Expectorated Sputum Sputum Culture - Preliminary 01/27/17 20:39 Sputum - Expectorated Sputum - Final Laboratory WBC 10.6 X10^3/uL (3.6-10.0) H 01/28/17 04:00 RBC 4.69 X10^6/uL (4.7-6.0) L 01/28/17 04:00 Hgb 13.7 g/dL (13.5-18.0) 01/28/17 04:00 Hct 39.9 % (42.0-54.0) L 01/28/17 04:00 MCV 85.1 fL (80.0-100.0) 01/28/17 04:00 MCH 29.1 pg (27.0-34.0) 01/28/17 04:00 MCHC 34.2 g/dL (33.0-35.0) 01/28/17 04:00 RDW 14.1 % (11.6-16.5) 01/28/17 04:00 Plt Count 238 X10^3/uL (150.0-450.0) 01/28/17 04:00 Plt Count Comment Adequate (ADEQUATE) 01/28/17 04:00 MPV 10.6 fL (7.4-11.0) 01/28/17 04:00 Neut % 93.7 % (42.0-75.0) H 01/28/17 04:00 Lymph % 1.7 % (21.0-51.0) L 01/28/17 04:00 [place] % 4.5 % (0.0-13.0) 01/28/17 04:00 Eos % 0.0 % (0.9-2.9) L 01/28/17 04:00 Baso % 0.1 % (0.2-1.0) L 01/28/17 04:00 Neut # 9.9 x10^3/uL (2.2-4.8) H 01/28/17 04:00 Lymph # 0.2 X10^3/uL (1.3-2.9) L 01/28/17 04:00 [place] # 0.5 x10^3/uL (0.3-0.8) 01/28/17 04:00 Eos # 0.0 x10^3/uL (0.0-0.2) 01/28/17 04:00 Baso # 0.0 X10^3/uL (0.0-0.1) 01/28/17 04:00 Absolute Nucleated RBC 0.0 /100WBC 01/28/17 04:00 Total Counted 100 01/28/17 04:00 Neutrophils % (Manual) 92 % (39-76) H 01/28/17 04:00 Band Neutrophils % 2 % (0-10) 01/27/17 04:50 Lymphocytes % (Manual) 5 % (13-43) L 01/28/17 04:00 Monocytes % (Manual) 3 % (4-9) L 01/28/17 04:00 Plt Morphology Comment Normal (NORMAL) 01/28/17 04:00 RBC Morphology Normal (NORMAL) 01/28/17 04:00 ESR 5 MM/HOUR (0-15) 01/24/17 05:23 Sodium 143 mmol/L (136-145) 01/28/17 04:00 Corrected Sodium 144 mmol/L (136-145) 01/28/17 04:00 Potassium 3.2 mmol/L (3.5-5.1) L 01/28/17 04:00 Chloride 106 mmol/L (98-107) 01/28/17 04:00 Carbon Dioxide 34.0 mmol/L (21-32) H 01/28/17 04:00 BUN 23 mg/dL (7-18) H 01/28/17 04:00 Creatinine 0.92 mg/dL (0.70-1.30) 01/28/17 04:00 Est GFR (MDRD) Af Amer > 60 (>60) 01/28/17 04:00 Est GFR (MDRD) Non-Af > 60 (>60) 01/28/17 04:00 Glucose 147 mg/dL (65-99) H 01/28/17 04:00 Calcium 8.3 mg/dL (8.5-10.1) L 01/28/17 04:00 Corrected Calcium 9.2 mg/dL (8.5-10.1) 01/28/17 04:00 Magnesium 2.3 mg/dL (1.7-2.9) 01/27/17 04:50 Total Bilirubin 0.50 mg/dL (0.2-1.0) 01/28/17 04:00 AST 86 Units/L (15-37) H 01/28/17 04:00 ALT 102 Units/L (12-78) H 01/28/17 04:00 Alkaline Phosphatase 60 Units/L (46-116) 01/28/17 04:00 C-Reactive Protein 5.60 mg/L (0-3.0) H 01/24/17 05:23 Total Protein 6.5 g/dL (6.4-8.2) 01/28/17 04:00 Albumin 2.9 g/dL (3.4-5.0) L 01/28/17 04:00 Globulin 3.6 g/dL (2.5-4.5) 01/28/17 04:00 Albumin/Globulin Ratio 0.8 Ratio (1.1-2.1) L 01/28/17 04:00 Vitamin B12 1714 pg/mL (193-986) H 01/24/17 05:23 Free T4 1.22 ng/dL (0.76-1.46) 01/24/17 05:23 TSH 3rd Generation 0.643 uIU/mL (0.358-3.74) 01/24/17 05:23 Specimen Type Catherized urine 01/28/17 00:59 Urine Color Pale yellow (YELLOW) 01/28/17 00:59 Urine Appearance Clear (CLEAR) 01/28/17 00:59 Urine pH 6.0 (5.0 - 8.0) 01/28/17 00:59 Ur Specific [place] 1.020 (1.000-1.030) 01/28/17 00:59 Urine Protein Negative (NEGATIVE) 01/28/17 00:59 Urine Glucose (UA) Negative (NEGATIVE) 01/28/17 00:59 Urine Ketones Negative (NEGATIVE) 01/28/17 00:59 Urine Occult Blood 2+ (NEGATIVE) 01/28/17 00:59 Urine Nitrite Negative (NEGATIVE) 01/28/17 00:59 Urine Bilirubin Negative (NEGATIVE) 01/28/17 00:59 Urine Urobilinogen Normal (NORMAL) 01/28/17 00:59 Ur Leukocyte Esterase Negative (NEGATIVE) 01/28/17 00:59 Urine RBC Rare /HPF (NEGATIVE) 01/28/17 00:59 Urine WBC None seen /HPF (NEGATIVE) 01/28/17 00:59 Ur Squamous Epith Cells Negative /HPF (NEGATIVE) 01/28/17 00:59 Urine Bacteria Negative /HPF (NEGATIVE) 01/28/17 00:59 Ur Culture Indicated? No/not indicated 01/28/17 00:59 EMILY Screen None detected (None Detected) 01/24/17 05:23 EMILY Titer TNP 01/24/17 05:23 EMILY Pattern TNP 01/24/17 05:23 AChR Muscle Binding Ab 0.2 01/24/17 05:23 Striated Muscle IgG Ab <1:40 01/24/17 05:23 Acetylcholine Recept Ab Cancelled 01/23/17 20:14 - Plan (1) Myasthenia gravis with (acute) exacerbation Status: Suspected Plan: SOLU-MEDROL 125MG IV Q6H, MESTINON 60MG PO Q4H, CONTINUE TO MONITOR (2) Diplopia Status: Acute Plan: CONTINUE TO MONITOR (3) Ptosis of eyelid, bilateral Status: Acute Plan: CONTINUE TO MONITOR (4) Weakness generalized Status: Acute Plan: PHYSICAL THERAPY, CONTINUE TO MONITOR
--- NOTE | 2017-01-28 23:05 | PCM.PROG ---
Progress Note - Progress Note for Day of Date: 01/26/17 - Subjective Subjective: WAS ADMITTED WITH ACUTE DIPLOPIA, UNSTEADY BALANCE, WEAKNESS, AND PTOSIS. TODAY, HE IS ALERT AND ORIENTED, LYING IN BED ON MORNING ROUNDS. PATIENT'S FAMILY IS AT BEDSIDE. PATIENT CONTINUES WITH WEAKNESS TO UPPER AND LOWER EXTREMITIES, WHICH APPEAR TO HAVE WORSENED AGAIN. PATIENT DOES NOT HAVE MUCH CONTROL OVER NECK MUSCLES HE DID YESTERDAY. HE CONTINUES WITH PTOSIS, BUT CONTINUES TO DENY DOUBLE VISION TODAY. STAFF REPORTS THAT AROUND 02:50 THIS MORNING, MUSCLE TWITCHING APPEARED TO BE WORSENING AND THAT PATIENT WAS UNABLE TO WALK TO THE BATHROOM, WHEREAS HE WAS ABLE TO LAST NIGHT AND YESTERDAY. PATIENT WAS UNABLE TO STAND AND REPORTS THAT HE WOULD LIKE TO SPEAK TO US BEFORE TAKING ANYMORE MEDICATIONS. PATIENT REPORTS THAT HE FELT IF THE MEDICATION WAS MORE BENEFICIAL TO HIM BEFORE WE INCREASED THE FREQUENCY OF THE MESTINON. LUNGS CONTINUE WITH COURSE RHONCHI BILATERALLY TO AUSCULTATION. HE CONTINUES WITH SHORTNESS OF BREATH. HIS VITAL SIGNS THIS MORNING ARE 98.2-68-22-96%-150/60. ABNORMAL LAB VALUES THIS MORNING INCLUDE THE FOLLOWING: WBC 18.4, POTASSIUM 3.4, BUN 25, GLUCOSE 146, AST 106, ALBUMIN 3.3, A /G RATIO 0.8. EMILY PANEL AND MYASTHENIA GRAVIS PANEL ARE PENDING. TODAY, WE PLAN TO DECREASE THE MESTINON TO 30MG PO QID. OTHERWISE, WE WILL CONTINUE TO MONITOR PATIENT AND FOLLOW UP WITH AM LABS. - Past Medical Family Social History Past Med/Fam/Surg Hx: No changes since H&P Allergies: Allergies No Known Drug Allergies Allergy (Verified 01/23/17 08:33) - Review of Systems ROS: No change since H&P - Vital Signs and I&O's Vital Signs: Temperature 98.7 F Pulse Rate [Left Brachial] 67 Pulse Rate 80 Respiratory Rate 32 Blood Pressure [Left Arm] 154/71 Blood Pressure 149/86 O2 Sat by Pulse Oximetry 98 Intake and Output: Intake & Output 01/26/17 01/27/17 01/28/17 01/29/17 11:59 11:59 11:59 11:59 Intake Total 1795 4094 3540 Output Total 225 3730 Balance 1795 3869 -190 - Physical Exam Oriented: Normal Eyes: Blurred Vision, Diplopia, Other (ptosis ) Ear: Normal. negative: Right, Left, Swelling, Ecchymosis, Hemotypanum, Abrasion , Laceration Nose: Discharge. negative: Normal, Injected, Blood, Other Throat: Normal Respiratory: Right, Left, Generalized, Rhonchi Cardiovascular: Normal. negative: Tachycardia, Bradycardia, Irregular, S3, S4, Murmur, Edema, Other : Normal. negative: Dysuria, Hematuria, Frequency, Discharge, Testicular Pain , Bleeding, , Other Auscultation: Bowel Sounds: Normal Palpation: Normal Tenderness: Normal. negative: Rebound, Guarding, Rigidity Skin: Normal Musculoskeletal: Right, Left, Arm, Leg, Back:Lumbar, Tender, Instability Psychiatric: Normal Mood Description: Calm Affect: Normal Speech Pattern: Clear, Appropriate - Laboratory and Diagnostics Result Diagrams: 01/28/17 04:00 01/28/17 04:00 Labs: 01/27/17 20:39 Sputum - Expectorated Sputum Sputum Culture - Preliminary 01/27/17 20:39 Sputum - Expectorated Sputum - Final Laboratory WBC 10.6 X10^3/uL (3.6-10.0) H 01/28/17 04:00 RBC 4.69 X10^6/uL (4.7-6.0) L 01/28/17 04:00 Hgb 13.7 g/dL (13.5-18.0) 01/28/17 04:00 Hct 39.9 % (42.0-54.0) L 01/28/17 04:00 MCV 85.1 fL (80.0-100.0) 01/28/17 04:00 MCH 29.1 pg (27.0-34.0) 01/28/17 04:00 MCHC 34.2 g/dL (33.0-35.0) 01/28/17 04:00 RDW 14.1 % (11.6-16.5) 01/28/17 04:00 Plt Count 238 X10^3/uL (150.0-450.0) 01/28/17 04:00 Plt Count Comment Adequate (ADEQUATE) 01/28/17 04:00 MPV 10.6 fL (7.4-11.0) 01/28/17 04:00 Neut % 93.7 % (42.0-75.0) H 01/28/17 04:00 Lymph % 1.7 % (21.0-51.0) L 01/28/17 04:00 [place] % 4.5 % (0.0-13.0) 01/28/17 04:00 Eos % 0.0 % (0.9-2.9) L 01/28/17 04:00 Baso % 0.1 % (0.2-1.0) L 01/28/17 04:00 Neut # 9.9 x10^3/uL (2.2-4.8) H 01/28/17 04:00 Lymph # 0.2 X10^3/uL (1.3-2.9) L 01/28/17 04:00 [place] # 0.5 x10^3/uL (0.3-0.8) 01/28/17 04:00 Eos # 0.0 x10^3/uL (0.0-0.2) 01/28/17 04:00 Baso # 0.0 X10^3/uL (0.0-0.1) 01/28/17 04:00 Absolute Nucleated RBC 0.0 /100WBC 01/28/17 04:00 Total Counted 100 01/28/17 04:00 Neutrophils % (Manual) 92 % (39-76) H 01/28/17 04:00 Band Neutrophils % 2 % (0-10) 01/27/17 04:50 Lymphocytes % (Manual) 5 % (13-43) L 01/28/17 04:00 Monocytes % (Manual) 3 % (4-9) L 01/28/17 04:00 Plt Morphology Comment Normal (NORMAL) 01/28/17 04:00 RBC Morphology Normal (NORMAL) 01/28/17 04:00 ESR 5 MM/HOUR (0-15) 01/24/17 05:23 Sodium 143 mmol/L (136-145) 01/28/17 04:00 Corrected Sodium 144 mmol/L (136-145) 01/28/17 04:00 Potassium 3.2 mmol/L (3.5-5.1) L 01/28/17 04:00 Chloride 106 mmol/L (98-107) 01/28/17 04:00 Carbon Dioxide 34.0 mmol/L (21-32) H 01/28/17 04:00 BUN 23 mg/dL (7-18) H 01/28/17 04:00 Creatinine 0.92 mg/dL (0.70-1.30) 01/28/17 04:00 Est GFR (MDRD) Af Amer > 60 (>60) 01/28/17 04:00 Est GFR (MDRD) Non-Af > 60 (>60) 01/28/17 04:00 Glucose 147 mg/dL (65-99) H 01/28/17 04:00 Calcium 8.3 mg/dL (8.5-10.1) L 01/28/17 04:00 Corrected Calcium 9.2 mg/dL (8.5-10.1) 01/28/17 04:00 Magnesium 2.3 mg/dL (1.7-2.9) 01/27/17 04:50 Total Bilirubin 0.50 mg/dL (0.2-1.0) 01/28/17 04:00 AST 86 Units/L (15-37) H 01/28/17 04:00 ALT 102 Units/L (12-78) H 01/28/17 04:00 Alkaline Phosphatase 60 Units/L (46-116) 01/28/17 04:00 C-Reactive Protein 5.60 mg/L (0-3.0) H 01/24/17 05:23 Total Protein 6.5 g/dL (6.4-8.2) 01/28/17 04:00 Albumin 2.9 g/dL (3.4-5.0) L 01/28/17 04:00 Globulin 3.6 g/dL (2.5-4.5) 01/28/17 04:00 Albumin/Globulin Ratio 0.8 Ratio (1.1-2.1) L 01/28/17 04:00 Vitamin B12 1714 pg/mL (193-986) H 01/24/17 05:23 Free T4 1.22 ng/dL (0.76-1.46) 01/24/17 05:23 TSH 3rd Generation 0.643 uIU/mL (0.358-3.74) 01/24/17 05:23 Specimen Type Catherized urine 01/28/17 00:59 Urine Color Pale yellow (YELLOW) 01/28/17 00:59 Urine Appearance Clear (CLEAR) 01/28/17 00:59 Urine pH 6.0 (5.0 - 8.0) 01/28/17 00:59 Ur Specific [place] 1.020 (1.000-1.030) 01/28/17 00:59 Urine Protein Negative (NEGATIVE) 01/28/17 00:59 Urine Glucose (UA) Negative (NEGATIVE) 01/28/17 00:59 Urine Ketones Negative (NEGATIVE) 01/28/17 00:59 Urine Occult Blood 2+ (NEGATIVE) 01/28/17 00:59 Urine Nitrite Negative (NEGATIVE) 01/28/17 00:59 Urine Bilirubin Negative (NEGATIVE) 01/28/17 00:59 Urine Urobilinogen Normal (NORMAL) 01/28/17 00:59 Ur Leukocyte Esterase Negative (NEGATIVE) 01/28/17 00:59 Urine RBC Rare /HPF (NEGATIVE) 01/28/17 00:59 Urine WBC None seen /HPF (NEGATIVE) 01/28/17 00:59 Ur Squamous Epith Cells Negative /HPF (NEGATIVE) 01/28/17 00:59 Urine Bacteria Negative /HPF (NEGATIVE) 01/28/17 00:59 Ur Culture Indicated? No/not indicated 01/28/17 00:59 EMILY Screen None detected (None Detected) 01/24/17 05:23 EMILY Titer TNP 01/24/17 05:23 EMILY Pattern TNP 01/24/17 05:23 AChR Muscle Binding Ab 0.2 01/24/17 05:23 Striated Muscle IgG Ab <1:40 01/24/17 05:23 Acetylcholine Recept Ab Cancelled 01/23/17 20:14 - Plan (1) Myasthenia gravis with (acute) exacerbation Status: Suspected Plan: SOLU-MEDROL 125MG IV Q6H, MESTINON 30MG PO QID, CONTINUE TO MONITOR (2) Diplopia Status: Acute Plan: CONTINUE TO MONITOR (3) Ptosis of eyelid, bilateral Status: Acute Plan: CONTINUE TO MONITOR (4) Weakness generalized Status: Acute Plan: PHYSICAL THERAPY, CONTINUE TO MONITOR
--- NOTE | 2017-01-29 21:10 | PCM.PROG ---
Progress Note - Progress Note for Day of Date: 01/28/17 - Subjective Subjective: WAS ADMITTED WITH ACUTE DIPLOPIA, UNSTEADY BALANCE, WEAKNESS, AND PTOSIS. TODAY, HE IS ALERT AND ORIENTED, LYING IN BED ON MORNING ROUNDS. PATIENT'S FAMILY IS AT BEDSIDE. PATIENT CONTINUES WITH WEAKNESS TO UPPER AND LOWER EXTREMITIES, WHICH APPEAR TO HAVE SLIGHTLY IMPROVED SINCE YESTERDAY. PATIENT APPEARS TO HAVE REGAINED SOME STRENGTH AND CONTROL OF NECK. HE CONTINUES WITH PTOSIS, BUT CONTINUES TO DENY DOUBLE VISION TODAY. MUSCLE TWITCHING HAS DECREASED SINCE YESTERDAY. ON EXAMINATION, LUNGS CONTINUE WITH COURSE RHONCHI BILATERALLY TO AUSCULTATION. HE CONTINUES WITH SHORTNESS OF BREATH. HIS VITAL SIGNS THIS MORNING ARE 97.4-80-24-100%-185/82. ABNORMAL LAB VALUES THIS MORNING INCLUDE THE FOLLOWING: WBC 15.7, HCT 40.9, POTASSIUM 3.1, BUN 27, GLUCOSE 135, AST 91, ALBUMIN 3.2, A/G RATIO 0.8. EMILY PANEL AND MYASTHENIA GRAVIS PANEL ARE PENDING. TODAY, WE PLAN TO INCREASE THE MESTINON AGAIN TO 60MG PO QID. OTHERWISE, WE WILL CONTINUE TO MONITOR PATIENT AND FOLLOW UP WITH AM LABS. WE WILL CONTINUE TO HAVE PHYSICAL THERAPY WORK WITH PATIENT. IF PATIENT IS NOT NOTED WITH SIGNIFICANT IMPROVEMENT BY TOMORROWS ROUNDS, WE MAY CONSIDER TRANSFERRING PATIENT FOR A SECOND OPINION. - Past Medical Family Social History Past Med/Fam/Surg Hx: No changes since H&P Allergies: Allergies No Known Drug Allergies Allergy (Verified 01/23/17 08:33) - Review of Systems ROS: No change since H&P - Vital Signs and I&O's Vital Signs: Temperature 98.7 F Pulse Rate [Left Brachial] 67 Pulse Rate 80 Respiratory Rate 32 Blood Pressure [Left Arm] 154/71 Blood Pressure 149/86 O2 Sat by Pulse Oximetry 98 Intake and Output: Intake & Output 01/27/17 01/28/17 01/29/17 01/30/17 11:59 11:59 11:59 11:59 Intake Total 4094 3540 Output Total 225 3730 Balance 3869 -190 - Physical Exam Oriented: Normal Eyes: Blurred Vision, Diplopia, Other (ptosis ) Ear: Normal. negative: Right, Left, Swelling, Ecchymosis, Hemotypanum, Abrasion , Laceration Nose: Discharge. negative: Normal, Injected, Blood, Other Throat: Normal Respiratory: Right, Left, Generalized, Rhonchi Cardiovascular: Normal. negative: Tachycardia, Bradycardia, Irregular, S3, S4, Murmur, Edema, Other : Normal. negative: Dysuria, Hematuria, Frequency, Discharge, Testicular Pain , Bleeding, , Other Auscultation: Bowel Sounds: Normal Palpation: Normal Tenderness: Normal. negative: Rebound, Guarding, Rigidity Skin: Normal Musculoskeletal: Right, Left, Arm, Leg, Back:Lumbar, Tender, Instability Psychiatric: Normal Mood Description: Calm Affect: Normal Speech Pattern: Clear, Appropriate - Laboratory and Diagnostics Result Diagrams: 01/28/17 04:00 01/28/17 04:00 Labs: 01/27/17 20:39 Sputum - Expectorated Sputum Sputum Culture - Preliminary 01/27/17 20:39 Sputum - Expectorated Sputum - Final Laboratory WBC 10.6 X10^3/uL (3.6-10.0) H 01/28/17 04:00 RBC 4.69 X10^6/uL (4.7-6.0) L 01/28/17 04:00 Hgb 13.7 g/dL (13.5-18.0) 01/28/17 04:00 Hct 39.9 % (42.0-54.0) L 01/28/17 04:00 MCV 85.1 fL (80.0-100.0) 01/28/17 04:00 MCH 29.1 pg (27.0-34.0) 01/28/17 04:00 MCHC 34.2 g/dL (33.0-35.0) 01/28/17 04:00 RDW 14.1 % (11.6-16.5) 01/28/17 04:00 Plt Count 238 X10^3/uL (150.0-450.0) 01/28/17 04:00 Plt Count Comment Adequate (ADEQUATE) 01/28/17 04:00 MPV 10.6 fL (7.4-11.0) 01/28/17 04:00 Neut % 93.7 % (42.0-75.0) H 01/28/17 04:00 Lymph % 1.7 % (21.0-51.0) L 01/28/17 04:00 [place] % 4.5 % (0.0-13.0) 01/28/17 04:00 Eos % 0.0 % (0.9-2.9) L 01/28/17 04:00 Baso % 0.1 % (0.2-1.0) L 01/28/17 04:00 Neut # 9.9 x10^3/uL (2.2-4.8) H 01/28/17 04:00 Lymph # 0.2 X10^3/uL (1.3-2.9) L 01/28/17 04:00 [place] # 0.5 x10^3/uL (0.3-0.8) 01/28/17 04:00 Eos # 0.0 x10^3/uL (0.0-0.2) 01/28/17 04:00 Baso # 0.0 X10^3/uL (0.0-0.1) 01/28/17 04:00 Absolute Nucleated RBC 0.0 /100WBC 01/28/17 04:00 Total Counted 100 01/28/17 04:00 Neutrophils % (Manual) 92 % (39-76) H 01/28/17 04:00 Band Neutrophils % 2 % (0-10) 01/27/17 04:50 Lymphocytes % (Manual) 5 % (13-43) L 01/28/17 04:00 Monocytes % (Manual) 3 % (4-9) L 01/28/17 04:00 Plt Morphology Comment Normal (NORMAL) 01/28/17 04:00 RBC Morphology Normal (NORMAL) 01/28/17 04:00 ESR 5 MM/HOUR (0-15) 01/24/17 05:23 Sodium 143 mmol/L (136-145) 01/28/17 04:00 Corrected Sodium 144 mmol/L (136-145) 01/28/17 04:00 Potassium 3.2 mmol/L (3.5-5.1) L 01/28/17 04:00 Chloride 106 mmol/L (98-107) 01/28/17 04:00 Carbon Dioxide 34.0 mmol/L (21-32) H 01/28/17 04:00 BUN 23 mg/dL (7-18) H 01/28/17 04:00 Creatinine 0.92 mg/dL (0.70-1.30) 01/28/17 04:00 Est GFR (MDRD) Af Amer > 60 (>60) 01/28/17 04:00 Est GFR (MDRD) Non-Af > 60 (>60) 01/28/17 04:00 Glucose 147 mg/dL (65-99) H 01/28/17 04:00 Calcium 8.3 mg/dL (8.5-10.1) L 01/28/17 04:00 Corrected Calcium 9.2 mg/dL (8.5-10.1) 01/28/17 04:00 Magnesium 2.3 mg/dL (1.7-2.9) 01/27/17 04:50 Total Bilirubin 0.50 mg/dL (0.2-1.0) 01/28/17 04:00 AST 86 Units/L (15-37) H 01/28/17 04:00 ALT 102 Units/L (12-78) H 01/28/17 04:00 Alkaline Phosphatase 60 Units/L (46-116) 01/28/17 04:00 C-Reactive Protein 5.60 mg/L (0-3.0) H 01/24/17 05:23 Total Protein 6.5 g/dL (6.4-8.2) 01/28/17 04:00 Albumin 2.9 g/dL (3.4-5.0) L 01/28/17 04:00 Globulin 3.6 g/dL (2.5-4.5) 01/28/17 04:00 Albumin/Globulin Ratio 0.8 Ratio (1.1-2.1) L 01/28/17 04:00 Vitamin B12 1714 pg/mL (193-986) H 01/24/17 05:23 Free T4 1.22 ng/dL (0.76-1.46) 01/24/17 05:23 TSH 3rd Generation 0.643 uIU/mL (0.358-3.74) 01/24/17 05:23 Specimen Type Catherized urine 01/28/17 00:59 Urine Color Pale yellow (YELLOW) 01/28/17 00:59 Urine Appearance Clear (CLEAR) 01/28/17 00:59 Urine pH 6.0 (5.0 - 8.0) 01/28/17 00:59 Ur Specific [place] 1.020 (1.000-1.030) 01/28/17 00:59 Urine Protein Negative (NEGATIVE) 01/28/17 00:59 Urine Glucose (UA) Negative (NEGATIVE) 01/28/17 00:59 Urine Ketones Negative (NEGATIVE) 01/28/17 00:59 Urine Occult Blood 2+ (NEGATIVE) 01/28/17 00:59 Urine Nitrite Negative (NEGATIVE) 01/28/17 00:59 Urine Bilirubin Negative (NEGATIVE) 01/28/17 00:59 Urine Urobilinogen Normal (NORMAL) 01/28/17 00:59 Ur Leukocyte Esterase Negative (NEGATIVE) 01/28/17 00:59 Urine RBC Rare /HPF (NEGATIVE) 01/28/17 00:59 Urine WBC None seen /HPF (NEGATIVE) 01/28/17 00:59 Ur Squamous Epith Cells Negative /HPF (NEGATIVE) 01/28/17 00:59 Urine Bacteria Negative /HPF (NEGATIVE) 01/28/17 00:59 Ur Culture Indicated? No/not indicated 01/28/17 00:59 EMILY Screen None detected (None Detected) 01/24/17 05:23 EMILY Titer TNP 01/24/17 05:23 EMILY Pattern TNP 01/24/17 05:23 AChR Muscle Binding Ab 0.2 01/24/17 05:23 Striated Muscle IgG Ab <1:40 01/24/17 05:23 Acetylcholine Recept Ab Cancelled 01/23/17 20:14 - Plan (1) Myasthenia gravis with (acute) exacerbation Status: Suspected Plan: SOLU-MEDROL 125MG IV Q6H, MESTINON 60MG PO QID, CONTINUE TO MONITOR (2) Diplopia Status: Acute Plan: CONTINUE TO MONITOR (3) Ptosis of eyelid, bilateral Status: Acute Plan: CONTINUE TO MONITOR (4) Weakness generalized Status: Acute Plan: PHYSICAL THERAPY, CONTINUE TO MONITOR
== END 2017-01-28 12:30 | disposition short-term general hospital (02) | DRG 57 ==
LOC: ICU 18:49 → OBSVTOIN 18:49
PROVIDERS: ADMIT Internal Medicine; ATTEND Internal Medicine
DX: G70.01 Myasthenia gravis with (acute) exacerbation (principal); H53.2 Diplopia; R26.81 Unsteadiness on feet; H02.403 Unspecified ptosis of bilateral eyelids; R06.02 Shortness of breath; R26.89 Other abnormalities of gait and mobility
CPT/HCPCS: 36415; 70450; 70552; 71010; 72125; 72131; 74000; 80053; 81001; 82607; 83519; 83735; 84132; 84439; 84443; 85025; 85652; 86140; 86255; 86308; 87070; 87205; 93005; 93010; 94640; 97535; 99283; A4216; A4222; J2405; J2930; J3480

== ENCOUNTER 2017-05-04 07:05 | Inpatient (IN) | payer OTHER ==
[2017-05-04] MEDS ORDERED: NS 1000 ML 1,000 ML IV ONE (07:17)
[2017-05-04] MEDS ORDERED: NS 1000 ML 1,000 ML ONE ×2 (07:19→08:25)
[2017-05-04 07:31] LABS: BASOPHILS % (AUTO) 0.8 % (0.2-1.0); EOSINOPHILS % (AUTO) 0.4 % (0.9-2.9); HEMATOCRIT 39.2 % (42.0-54.0); HEMOGLOBIN 13.4 g/dL (13.5-18.0); LYMPHOCYTES # (AUTO) 0.6 X10^3/uL (1.3-2.9); LYMPHOCYTES % (AUTO) 16.6 % (21.0-51.0); MEAN CORPUSCULAR HEMOGLOBIN 27.5 pg (27.0-34.0); MEAN CORPUSCULAR HGB CONC 34.1 g/dL (33.0-35.0); MEAN CORPUSCULAR VOLUME 80.6 fL (80.0-100.0); MEAN PLATELET VOLUME 9.9 fL (7.4-11.0); MONOCYTES # (AUTO) 0.5 x10^3/uL (0.3-0.8); MONOCYTES % (AUTO) 12.2 % (0.0-13.0); NEUTROPHILS # (AUTO) 2.7 x10^3/uL (2.2-4.8); PLATELET COUNT 162 X10^3/uL (150.0-450.0); RED BLOOD COUNT 4.86 X10^6/uL (4.7-6.0); RED CELL DISTRIBUTION WIDTH 14.1 % (11.6-16.5); WHITE BLOOD COUNT 3.9 X10^3/uL (3.6-10.0)
[2017-05-04] MEDS ORDERED: ADENOCARD INJ 6 MG IVP ONE (07:38)
--- NOTE | 2017-05-04 07:38 | DR.GENAD ---
HPI - PCP Primary Care Physician: SHAYY - Complaint/Symptoms Chief Complaint Doctors Comments: This started today. There was plans for cardioversion back in January but he spontaneously converted to NSR. Rate control with Metoprolol and later with another agent "buttomed" both his BP and HR. Chief Complaint:: PTC/O WEAKNESS AND HEART RACING. PT STATES HE HAS WENT INTO AFIB AND VTACH PREVIOUSLY WHEN HE WAS IN THE HOSPITAL, BUT IS NOT CURRENTLY NEEDING TREATMENT FOR THESE. 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) Past Surgical History: No Surgical History: No History - Family History History of Family Medical Conditions: Yes Family Medical History: Diabetes Mellitus, Cancer, Coronary Artery Disease, Hypertension - Social History Does any household member use tobacco: No Alcohol Use: None Do you use any recreational Drugs:: No Lives With: Family Lives Where: Home - infectious screening In the last 2 months have you had wt loss of >10#?: NO Have you had fever, night sweats or hemotysis?: No Have you traveled outside the country in the last 6 months?: No Isolation: Standard <GEOFFREY VEGAS - Last Filed: 05/04/17 08:10> ROS - Review of Systems Constitutional: No Symptoms Reported Eyes: No Symptoms Reported ENTM: No Symptoms Reported Respiratoy: No Symptoms Reported Cardiovascular: Palpitations Gastrointestinal/Abdominal: No Symptoms Reported Genitourinary: No Symptoms Reported Neurological: No Symptoms Reported Musculoskeletal: No Symptoms Reported Integumentary: No Symptoms Reported Hematologic/Lymphatic: No Symptoms Reported Endocrine: No Symptoms Reported Psychiatric: No Symptoms Reported <GEOFFREY VEGAS - Last Filed: 05/04/17 08:10> PE - General Limitations: No Limitations General Appearance: Alert, In No Apparent Distress - Head Head Exam: Normal Inspection - Eyes Eye exam: Normal Appearance - ENT ENT Exam: Normal Exam - Neck Neck Exam: Normal Inspection - Chest Chest Inspection: Normal Inspection - Respiratory Respiratory Exam: Normal Lung Sounds Bilat - Cardiovascular Cardiovascular Exam: Tachycardia, Irregular Rhythm (A. fib), +S1, +S2 - Abdominal Exam Abdominal Exam: Normal Inspection, Normal Bowel Sounds, Soft - Extremities Extremities Exam: Normal Inspection - Back Back Exam: Normal Inspection - Neurologic Neurological Exam: Alert, Oriented X3 - Psychiatric Psychiatric Exam: Normal Affect, Normal Mood - Skin Skin Exam: Warm, Dry, Intact, Normal Color <GEOFFREY VEGAS - Last Filed: 05/04/17 08:10> - Vital Signs Vitals: Temperature 97.7 F Pulse Rate [Apical] 128 Pulse Rate 131 Respiratory Rate 17 Blood Pressure [Left Arm] 116/70 Blood Pressure 92/64 O2 Sat by Pulse Oximetry 98 Course - Reevaluation 1st: Improved <GEOFFREY VEGAS - Last Filed: 05/04/17 08:10> - Consultation Called: 07:50 (Dr Hudson admitted for further management) <CONNOR BENOIT - Last Filed: 05/04/17 09:11> ROR - Labs Reviewed Result Diagrams: 05/04/17 07:15 05/04/17 07:15 <GEOFFREY VEGAS - Last Filed: 05/04/17 08:10> - Labs Reviewed Result Diagrams: 05/04/17 07:15 05/04/17 07:15 - XRAY XRAY Interpreted by: Radiologist (Chest: clear) <CONNOR BENOIT - Last Filed: 05/04/17 09:11> - Labs Reviewed Laboratory: WBC 3.9 X10^3/uL (3.6-10.0) 05/04/17 07:15 RBC 4.86 X10^6/uL (4.7-6.0) 05/04/17 07:15 Hgb 13.4 g/dL (13.5-18.0) L 05/04/17 07:15 Hct 39.2 % (42.0-54.0) L 05/04/17 07:15 MCV 80.6 fL (80.0-100.0) 05/04/17 07:15 MCH 27.5 pg (27.0-34.0) 05/04/17 07:15 MCHC 34.1 g/dL (33.0-35.0) 05/04/17 07:15 RDW 14.1 % (11.6-16.5) 05/04/17 07:15 Plt Count 162 X10^3/uL (150.0-450.0) 05/04/17 07:15 MPV 9.9 fL (7.4-11.0) 05/04/17 07:15 Neut % 70.0 % (42.0-75.0) 05/04/17 07:15 Lymph % 16.6 % (21.0-51.0) L 05/04/17 07:15 Coleman % 12.2 % (0.0-13.0) 05/04/17 07:15 Eos % 0.4 % (0.9-2.9) L 05/04/17 07:15 Baso % 0.8 % (0.2-1.0) 05/04/17 07:15 Neut # 2.7 x10^3/uL (2.2-4.8) 05/04/17 07:15 Lymph # 0.6 X10^3/uL (1.3-2.9) L 05/04/17 07:15 Coleman # 0.5 x10^3/uL (0.3-0.8) 05/04/17 07:15 Eos # 0.0 x10^3/uL (0.0-0.2) 05/04/17 07:15 Baso # 0.0 X10^3/uL (0.0-0.1) 05/04/17 07:15 Absolute Nucleated RBC 0.1 /100WBC 05/04/17 07:15 INR Target Range - 05/04/17 07:15 INR 1.09 (0.8-1.3) 05/04/17 07:15 PTT 30.3 SECONDS (22.9-36.5) 05/04/17 07:15 PTT Comment - 05/04/17 07:15 D-Dimer 197 ng/mL (0-400) 05/04/17 07:20 Sodium 141 mmol/L (136-145) 05/04/17 07:15 Corrected Sodium 141 mmol/L (136-145) 05/04/17 07:15 Potassium 2.9 mmol/L (3.5-5.1) L* 05/04/17 07:15 Chloride 102 mmol/L (98-107) 05/04/17 07:15 Carbon Dioxide 29.5 mmol/L (21-32) 05/04/17 07:15 BUN 8 mg/dL (7-18) 05/04/17 07:15 Creatinine 1.24 mg/dL (0.70-1.30) 05/04/17 07:15 Est GFR (MDRD) Af Amer > 60 (>60) 05/04/17 07:15 Est GFR (MDRD) Non-Af > 60 (>60) 05/04/17 07:15 Glucose 111 mg/dL (65-99) H 05/04/17 07:15 Calcium 8.3 mg/dL (8.5-10.1) L 05/04/17 07:15 Corrected Calcium TNP 05/04/17 07:15 Magnesium 1.7 mg/dL (1.7-2.9) 05/04/17 07:15 Total Bilirubin 0.30 mg/dL (0.2-1.0) 05/04/17 07:15 AST 19 Units/L (15-37) 05/04/17 07:15 ALT 18 Units/L (12-78) 05/04/17 07:15 Alkaline Phosphatase 62 Units/L (46-116) 05/04/17 07:15 Creatine Kinase 47 Units/L (39-308) 05/04/17 07:15 CK-MB (CK-2) < 1.0 ng/mL (0-4.0) 05/04/17 07:15 CK/CKMB % Calc 2.1 % (<4) 05/04/17 07:15 Troponin I 0.03 ng/mL (0-1.5) 05/04/17 07:15 Total Protein 7.3 g/dL (6.4-8.2) 05/04/17 07:15 Albumin 3.4 g/dL (3.4-5.0) 05/04/17 07:15 Globulin 3.9 g/dL (2.5-4.5) 05/04/17 07:15 Albumin/Globulin Ratio 0.9 Ratio (1.1-2.1) L 05/04/17 07:15 <GEOFFREY VEGAS - Last Filed: 05/04/17 08:10> <CONNOR BENOIT - Last Filed: 05/04/17 09:11> - Diagnosis Discharge Problem: Hypokalemia A-fib Qualifiers: Atrial fibrillation type: paroxysmal Qualified Code(s): I48.0 - Paroxysmal atrial fibrillation - Discharge Plan Condition: Stable - Follow ups/Referrals Follow ups/Referrals: Lawrence Hudson [Primary Care Provider] - 3 days - Instructions
--- NOTE | 2017-05-04 07:42 | RAD ---
HISTORY: Weakness, tachycardia and Study: Chest AP portable Comparison: 01/28/2017 Findings: The heart is within normal limits in size. The harrison are normal. The aorta is calcified. The lung fiel ds are clear. No pleural effusions are identified. The bony thorax is unremarkable. IMPRESSION: Lungs clear Reported By:
[2017-05-04 07:47] LABS: ALANINE AMINOTRANSFERASE 18 Units/L (12-78); ALBUMIN 3.4 g/dL (3.4-5.0); ALKALINE PHOSPHATASE 62 Units/L (46-116); ASPARTATE AMINO TRANSFERASE 19 Units/L (15-37); BLOOD UREA NITROGEN 8 mg/dL (7-18); CALCIUM 8.3 mg/dL (8.5-10.1); CARBON DIOXIDE 29.5 mmol/L (21-32); CHLORIDE 102 mmol/L (98-107); CKMB % 2.1 % (<4); COR NA(FOR HYPERGLY) 141 mmol/L (136-145); CREATINE KINASE 47 Units/L (39-308); CREATINE KINASE MB < 1.0 ng/mL (0-4.0); CREATININE 1.24 mg/dL (0.70-1.30); MAGNESIUM 1.7 mg/dL (1.7-2.9); SODIUM 141 mmol/L (136-145); TOTAL PROTEIN 7.3 g/dL (6.4-8.2); TROPONIN I 0.03 ng/mL (0-1.5); eGFR BLACK RACES > 60 (>60); eGFR NON BLACK RACES > 60 (>60)
[2017-05-04] MEDS ORDERED: ADENOCARD INJ 6 MG ONE (07:55)
[2017-05-04] MEDS ORDERED: ZOFRAN INJ 4 MG VIAL ONE (08:02)
[2017-05-04] MEDS ORDERED: ZOFRAN INJ 4 MG VIAL IVP ONE (08:03)
[2017-05-04] MEDS ORDERED: K-LYTE EFFERVESCENT PO ONE (08:07)
[2017-05-04] MEDS ORDERED: K-LYTE EFFERVESCENT ONE (08:09)
[2017-05-04] MEDS ORDERED: CARDIZEM INJ 125 MG VIAL ONE (08:58)
[2017-05-04] MEDS ORDERED: NS 100 ML IV 100 ML IV ONE (08:58)
[2017-05-04] MEDS ORDERED: NS + KCL 20 MEQ/L 1,000 ML IV ONE (08:59)
[2017-05-04] MEDS ORDERED: NS 1000 ML 1,000 ML IV SCH (09:00)
[2017-05-04] MEDS ORDERED: CARDIZEM INJ 125 MG VIAL 125 MG in NS 100 ML IV 100 ML IV PRN (09:06)
[2017-05-04] MEDS: NS 1000 ML 1,000 ML with POTASSIUM CHLORIDE INJ 20 MEQ VIAL 20 MEQ IV SCH ×4 (09:08→16:19)
[2017-05-04 10:20] VITALS: BMI 29.7
--- NOTE | 2017-05-04 11:48 | DR.H&P ---
H&P - History & Physical for Day of: H&P Date: 05/04/17 - Chief Complaint Chief Complaint: WEAKNESS, TACHYCARDIA - Allergies Allergies/Adverse Reactions: Allergies Allergy/AdvReac Type Severity Reaction Status Date / Time No Known Drug Allergies Allergy Verified 05/04/17 07:20 - History of Present Illness History of Present Illness: IS A 67 YEAR OLD PATIENT OF OURS WHO PRESENTED TO THE EMERGENCY ROOM WITH COMPLAINTS OF WEAKNESS AND HEART RACING. PATIENT REPORTS THAT HE HAD A SIMILAR EPISODE WHEN HE WAS HOSPITALIZED A FEW MONTHS AGO. PATIENT REPORTS THAT AT THAT TIME, HE WENT INTO ATRIAL FIBRILLATION AND VENTRICULAR TACHYCARDIA, BUT SPONTANEOUSLY CONVERTED WITHOUT THE NEED FOR CARDIOVERSION. HE IS NOT CURRENTLY RECEIVING ANY TREATMENT FOR SAID CONDITIONS. HE IS CURRENTLY IN REMISSION FROM GUILLIAN BARRE SYNDROME. PATIENT WAS PLACED ON THE WHARF ATTENDANT WHERE HE WAS FOUND TO BE IN ATRIAL FIBRILLATION WITH HR IN THE 130S. ON ARRIVAL, VITALS WERE 97.7-131-23-99%-92/64. LABS WERE OBTAINED. ABNORMAL LAB VALUES INCLUDE THE FOLLOWING: HGB 13.4, HCT 39.2, POTASSIUM 2.9, GLUCOSE 111, CALCIUM 8.3. A CHEST XRAY WAS OBTAINED AND REPORTED CLEAR LUNGS. HE WAS GIVEN ADENOSINE 6MG IV X 1 AND A NORMAL SALINE BOLUS. AFTER NO CONVERSION WAS NOTED, PATIENT WAS STARTED ON A CARDIZEM DRIP. POTASSIUM SUPPLEMENTS WERE ALSO GIVEN DUE TO DECREASED POTASSIUM. PATIENT WAS ADMITTED TO THE INTENSIVE CARE UNIT FOR FURTHER TREATMENT AND EVALUATION. HE WAS STARTED ON NORMAL SALINE AT 125ML/HR AND WILL CONTINUE ON CARDIZEM DRIP. WE PLAN TO FOLLOW UP WITH AM LABS AND CONTINUE TO MONITOR PATIENT. - Past Medical History Past Medical History: Hypertension Additional Medical History: GUILLIAN BARRE SYNDROME - Past Surgical History Surgical History: No History - Family History Family Medical History: Diabetes Mellitus, Heart Failure, Hypertension - Social History Does patient currently use any type of tobacco product: No Have you used tobacco products in the last 12 months: No Type of Tobacco Use: Cigarettes How many years tobacco product used: 25 Does any household member use tobacco: No Alcohol Use: None Drug Use: None - Medications Home Medications: Aspirin EC [ASPIRIN EC 81 MG *] 1 tab PO DAILY 05/04/17 [History Confirmed 05/04] Losartan Potassium & Hydrochlo [HYZAAR 50/12.5 MG *] 1 tab PO DAILY 05/04/17 [ History Confirmed 05/04/17] - Review of Systems Constitutional: Weakness. denies: Fever, Chills, Malaise Eyes: No Symptoms Reported. denies: See HPI, Pain, Vision Change, Conjunctivae Inflammation, Eyelid Inflammation, Redness, Other ENT: No Symptoms Reported. denies: See HPI, Ear Pain, Ear Discharge, Nose Pain , Nose Discharge, Nose Congestion, Mouth Pain, Mouth Swelling, Throat Pain, Throat Swelling, Other Respiratory: Shortness of Breath Cardiovascular: Palpitations, Light Headedness Gastrointestinal: No Symptoms Reported. denies: See HPI, Nausea, Vomiting, Abdominal Pain, Diarrhea, Constipation, Melena, Hematochezia, Other Genitourinary: No Symptoms Reported. denies: See HPI, Dysuria, Frequency, Incontinence, Hematuria, Retention, Other Musculoskeletal: No Symptoms Reported. denies: See HPI, Shoulder Pain, Arm Pain , Back Pain, Hand Pain, Leg Pain, Foot Pain, Neck Pain, Other Skin: denies: No Symptoms Reported, See HPI, Rash, Lesions, Jaundice, Bruising, Wound, Ecchymosis, Other Neurological: Weakness - Physical Exam Vital Signs: Temperature 99.2 F Pulse Rate [Apical] 58 Pulse Rate 131 Respiratory Rate 16 Blood Pressure [Left Arm] 115/55 Blood Pressure 92/64 O2 Sat by Pulse Oximetry 95 Oriented: Normal Eyes: Normal. negative: Blurred Vision, Diplopia, Discharge, Pain, Redness, Photophobia, Other Ear: Normal. negative: Right, Left, Swelling, Ecchymosis, Hemotypanum, Abrasion , Laceration Nose: negative: Normal, Injected, Discharge, Blood, Other Throat: Normal. negative: Tonsillar Hypertrophy, Red, Exudate, Dry, Other Respiratory: Clear Throughout Cardiovascular: Tachycardia, Irregular. negative: S3, S4, Murmur : Normal Auscultation: Bowel Sounds: Normal Palpation: Normal. negative: Spleen Enlarged, Liver Enlarged, Mass Pulsatile, Other Tenderness: Normal. negative: Rebound, Guarding, Rigidity Skin: Normal Musculoskeletal: Normal Psychiatric: Normal Mood Description: Calm Affect: Normal Speech Pattern: Clear - Assessment/Plan (1) A-fib Qualifiers: Atrial fibrillation type: paroxysmal Qualified Code(s): I48.0 - Paroxysmal atrial fibrillation Status: Acute Plan: CARDIZEM DRIP, WHARF ATTENDANT, CONTINUE TO MONITOR
[2017-05-04] MEDS ORDERED: TYLENOL 325 MG TAB PO PRN (20:46)
[2017-05-05] MEDS: NS 1000 ML 1,000 ML with POTASSIUM CHLORIDE INJ 20 MEQ VIAL 20 MEQ IV SCH ×4 (00:23→08:41)
[2017-05-05 05:44] LABS: BASOPHILS % (AUTO) 0.8 % (0.2-1.0); EOSINOPHILS % (AUTO) 0.4 % (0.9-2.9); HEMOGLOBIN 11.7 g/dL (13.5-18.0); LYMPHOCYTES # (AUTO) 0.7 X10^3/uL (1.3-2.9); MEAN CORPUSCULAR HEMOGLOBIN 27.4 pg (27.0-34.0); MEAN CORPUSCULAR HGB CONC 34.3 g/dL (33.0-35.0); MEAN CORPUSCULAR VOLUME 79.9 fL (80.0-100.0); MEAN PLATELET VOLUME 9.9 fL (7.4-11.0); MONOCYTES # (AUTO) 0.4 x10^3/uL (0.3-0.8); NEUTROPHILS # (AUTO) 1.3 x10^3/uL (2.2-4.8); NEUTROPHILS % (AUTO) 53.8 % (42.0-75.0); PLATELET COUNT 122 X10^3/uL (150.0-450.0); RED BLOOD COUNT 4.25 X10^6/uL (4.7-6.0); RED CELL DISTRIBUTION WIDTH 14.5 % (11.6-16.5); WHITE BLOOD COUNT 2.5 X10^3/uL (3.6-10.0)
[2017-05-05 06:01] LABS: ALANINE AMINOTRANSFERASE 15 Units/L (12-78); ALBUMIN 2.7 g/dL (3.4-5.0); ALKALINE PHOSPHATASE 47 Units/L (46-116); ASPARTATE AMINO TRANSFERASE 16 Units/L (15-37); BLOOD UREA NITROGEN 8 mg/dL (7-18); CALCIUM 7.8 mg/dL (8.5-10.1); CARBON DIOXIDE 28.9 mmol/L (21-32); CHLORIDE 108 mmol/L (98-107); COR CA(FOR HYPOALB) 8.8 mg/dL (8.5-10.1); CREATININE 0.86 mg/dL (0.70-1.30); SODIUM 143 mmol/L (136-145); TOTAL PROTEIN 6.3 g/dL (6.4-8.2); eGFR BLACK RACES > 60 (>60); eGFR NON BLACK RACES > 60 (>60)
[2017-05-05] MEDS ORDERED: POTASSIUM CHL 60 MEQ/NS 0.45% 500 ML IV PRN (07:06)
[2017-05-05] MEDS ORDERED: MAG-OX TAB PO PRN (07:06)
[2017-05-05] MEDS ORDERED: K-RIDER 10 MEQ/NS 100 ML 10 MEQ/100 ML BAG IV PRN (07:06)
[2017-05-05] MEDS ORDERED: MAGNESIUM SULFATE 1 GM/100 mL PREMIX 1 GM/100 ML BAG IV PRN (07:06)
[2017-05-05] MEDS ORDERED: K-LYTE EFFERVESCENT PO PRN (07:06)
[2017-05-05] MEDS ORDERED: POTASSIUM CHLORIDE LIQ 20 MEQ UDC PO PRN (07:06)
[2017-05-05] MEDS ORDERED: POTASSIUM CHL 40 MEQ/NS 0.45% 500 ML IV PRN (07:06)
[2017-05-05] MEDS ORDERED: ELIQUIS PO SCH (09:00)
[2017-05-05] MEDS ORDERED: FLONASE NASAL SPRAY ENOSTRIL SCH (10:00)
[2017-05-05] MEDS ORDERED: K-DUR TAB 20 MEQ PO SCH (10:00)
[2017-05-05] MEDS ORDERED: AUGMENTIN 500 MG/125 MG TAB PO SCH (10:00)
[2017-05-05] MEDS ORDERED: BETAPACE AF PO SCH (10:00)
[2017-05-05] MEDS ORDERED: NS 1/2 + KCL 20 MEQ/L 1,000 ML IV SCH (11:00)
[2017-05-05 16:04] VITALS: BP 124/59
== END 2017-05-05 16:45 | disposition home or self-care (01) | DRG 310 ==
LOC: ER 07:05 → ICU 09:12
PROVIDERS: ADMIT Internal Medicine; ATTEND Internal Medicine
DX: I48.0 Paroxysmal atrial fibrillation (principal); E87.6 Hypokalemia; R53.1 Weakness; R00.0 Tachycardia, unspecified; I10 Essential (primary) hypertension; R94.31 Abnormal electrocardiogram [ECG] [EKG]
CPT/HCPCS: 36415; 71045; 80053; 82550; 82553; 83735; 84132; 84484; 85025; 85378; 85610; 85730; 87040; 93005; 93010; 94760; 96365; 96374; 96375; 99284; A4222; J7030; J0150; J2405; J3480